=== PATIENT | male | born 1940 | race Caucasian/White ===

== ENCOUNTER 2018-07-19 14:12 | Observation (INO) | payer OTHER, SELFPAY ==
[2018-07-19] VITALS (11 sets, daily range): BP systolic 159–256; BP diastolic 74–186; PULSE 71–98; RESP 12–21; TEMP 36.4–36.6; O2SAT 92–100; BMI 18.6
--- NOTE | 2018-07-19 14:28 | DI.RAD.S_ITS ---
PROCEDURE: XR CHEST 1V INDICATIONS: chest pain TECHNIQUE: One view of the chest was acquired. COMPARISON: [facility], CT, ABDOMEN/PELVIS WITH CONTRAST, 12/29/2012, 9:51. [facility], CT, CT HEAD/BRAIN WO CON, 07/19/2018, 14:40. FINDINGS: Surgical changes and devices: None. Lungs and pleura: No pleural effusions or pneumothorax. Mild, streaky opacities are seen at the lung bases. Mediastinum: The cardiac contours are within normal limits. The aorta demonstrates calcification and tortuosity. Bones and chest wall: No suspicious bony lesions. Age-appropriate bony degenerative changes are seen. Overlying soft tissues appear unremarkable. IMPRESSION: Likely atelectasis is seen at the lung bases. Differential diagnosis includes mild/early infiltrate, however. Dictated by: Yong Stone M.D. on 07/19/2018 at 14:06 Approved by: Yong Stone M.D. on 07/19/2018 at 14:08
--- NOTE | 2018-07-19 14:42 | DI.CT.S_ITS ---
PROCEDURE: CT HEAD/BRAIN WO CON INDICATIONS: syncope and confusion TECHNIQUE: Noncontrast 4.5 mm thick angled axial sections acquired from the foramen magnum to the vertex, with coronal and sagittal reformats. For radiation dose reduction, the following was used: automated exposure control, adjustment of mA and/or kV according to patient size. COMPARISON: None. FINDINGS: Image quality: This examination is limited by involuntary motion artifact. CSF spaces: Basal cisterns are patent. No extra-axial fluid collections. The ventricles are symmetric in size and shape. Brain: No intracranial bleeds or masses. There is cerebral volume loss for age, with resultant ventricular and sulcal prominence. There are periventricular and deep white matter chronic small vessel ischemic changes. There is intracranial internal carotid artery atherosclerosis. Skull and face: Calvarium and visualized facial bones appear intact, without suspicious lesions. Sinuses: There is moderate mucosal thickening seen involving the right maxillary sinus. Visualized sinuses and mastoids otherwise appear clear. IMPRESSION: Limited study demonstrating no acute intracranial process. Focal right maxillary paranasal sinus disease noted. Dictated by: Yong Stone M.D. on 07/19/2018 at 14:03 Approved by: Yong Stone M.D. on 07/19/2018 at 14:06
[2018-07-19 14:54] LABS: Add Manual Diff / Slide Review NO; Basophils Percent Auto 0.8 % (0-2); Eosinophils Percent Auto 0.4 % (2-4); Hematocrit 43.5 % (41-53); Hemoglobin 14.4 g/dL (13.5-17.5); Lymphocytes Percent Auto 15.4 % (25-40); Mean Corpuscular Hemoglobin 30.8 PG (26-34); Mean Corpuscular Volume 93.3 fL (80-100); Monocytes Percent Auto 7.5 % (3-14); Neutrophils Absolute Auto 6300 /uL (3000-5900); Neutrophils Percent Auto 75.9 % (50-75); Platelet Count 233 X10^3/uL (150-400); Red Blood Cell Count 4.66 X10^6/uL (4.5-5.9); Red Cell Distribution Width 16.4 % (11.6-14.8); White Blood Cell Count 8.3 X10^3/uL (4.5-11.0)
[2018-07-19 15:01] LABS: INR 1.1 (0.9-1.3); Prothrombin Time 12.1 SECONDS (10.1-12.7)
[2018-07-19 15:03] LABS: PTT Partial Thromboplastin Tim 27 SECONDS (26.4-36.2)
[2018-07-19 15:07] LABS: Alanine Aminotransferase 14 IU/L (21-72); Albumin 4.3 g/dL (3.5-5.0); Albumin Globulin Ratio 0.9 (1.0-2.8); Alkaline Phosphatase 64 U/L (38-126); Aspartate Aminotransferase 20 IU/L (17-59); BUN Creatinine Ratio 17.5 (6-22); Bilirubin Total 0.5 mg/dL (0.2-1.3); Blood Urea Nitrogen 21 mg/dL (9-20); Calcium 9.4 mg/dL (8.4-10.2); Carbon Dioxide 31 mmol/L (22-32); Chloride 102 mmol/L (98-107); Creatine Kinase 45 U/L (55-170); Estimated Glomerular Filt Rate 58.6 mL/min (>60); Globulin 4.6 g/dL (1.7-4.1); Glucose 136 mg/dL (80-110); HEMOLYSIS < 15 (0-50); Lipase 237 U/L (23-300); Potassium 4.4 mmol/L (3.4-5.1); Sodium 145 mmol/L (137-145); Total Protein 8.9 g/dL (6.3-8.2)
--- NOTE | 2018-07-19 15:07 | ED.SYNCOPE ---
HPI - Syncope General Chief Complaint: Syncope Stated Complaint: syncope Time Seen by Provider: 07/19/18 14:41 Source: EMS Mode of arrival: EMS Limitations: altered mental status History of Present Illness HPI narrative: 78-year-old male brought in by EMS after he was reported that he had a syncopal episode. Unsure as to the exact events leading up to this. EMS was unable to provide more information on this. Patient was unable to provide information regarding the episode. EMS does report that upon their arrival the patient had an oxygen saturation in the 80s. This did improve with oxygen. some reports that the right side of the patient's face was drooping during the event. Patient arrived hypertensive. Unsure what his baseline blood pressure is. At 1 point during his stay here they patient stated that he has not taken his blood pressure medication in several days. Nursing staff attempted to contact patient's family had upon the initial conversation over the phone, the individual who is on the phone was unable to provide any further information regarding the event. Related Data Home Medications Medication Instructions Recorded Confirmed albuterol sulfate 2 puff INHALATION Q4-6H PRN 07/19/18 07/19/18 budesonide-formoterol 2 puff INHALATION BID 07/19/18 07/19/18 cholecalciferol (vitamin D3) 2,000 unit PO DAILY 07/19/18 07/19/18 [Vitamin D3] hydrochlorothiazide 25 mg PO DAILY 07/19/18 07/19/18 lisinopril 20 mg PO DAILY 07/19/18 07/19/18 tiotropium bromide 1 cap INHALATION DAILY 07/19/18 07/19/18 Allergies Allergy/AdvReac Type Severity Reaction Status Date / Time No Known Drug Allergies Allergy Verified 07/19/18 15:39 Review of Systems Review of Systems Unable to obtain secondary to patient's altered mental status. Information that was available was presented in the [facility] Medical History COPD (chronic obstructive pulmonary disease) (Acute) Costal chondritis (Acute) Hydronephrosis (Acute) Hypertension (Acute) Lipoma (Acute) Osteoarthritis (Acute) Prostate cancer (Acute) Pulmonary asbestosis (Acute) Smoker in home (Acute) Surgical history unknown (Acute) Ureteropelvic junction obstruction (Acute) Viral hepatitis C (Acute) Prostate CA (Chronic) Family History Sister CAD (coronary artery disease) Social History household members: none Smoking Status: Current every day smoker alcohol intake: current Exam Initial Vital Signs Initial Vital Signs: Vital Signs Temperature 97.6 F 07/19/18 14:13 Pulse Rate 98 H 07/19/18 14:13 Respiratory Rate 14 07/19/18 14:13 Blood Pressure 256/96 H 07/19/18 14:13 Pulse Oximetry 95 07/19/18 14:13 Const General: comfortable, No acute distress, No combative, disheveled and well hydrated Orientation: alert, awake, oriented to person, not oriented to place, not oriented to time and confused Limitations: altered mental status HENMT Head: normal to inspection and normocephalic Eyes Pupils: PERRL Resp Effort & Inspection: normal respiratory effort Auscultation: clear to auscultation bilaterally Other: Patient had received a nebulizer treatment prior to my evaluation. It was reported by respiratory therapy and nursing staff that he had diffuse bilateral crackles upon arrival. He was clear at the time of my exam. Cardio Rate: regular rate Rhythm: regular rhythm GI Inspection: non-distended Palpation: soft Skin Lesions: no lesions Rashes: no rashes Neuro General: alert, awake, moves all extremities and no focal motor deficits Speech: speech normal Other: Patient does follow commands. He was alert to person however did not know where he was. Did not know the circumstances of why he was here. Did not have a recollection of the event that brought him to the emergency department. The patient would answer some questions but was also inappropriate answering other questions. Extrem General: normal to inspection and capillary refill normal Psych Appearance: grossly normal Scores GCS Tracie coma scale eye opening: Spontaneous Tracie coma scale verbal response: Confused Tracie coma scale motor response: Obey commands [place] coma scale total score: 14 Course Orders Ordered: ED Orders 07/19/18 14:28 XR chest 1V Stat EKG-12 Lead Stat 07/19/18 14:42 CT head/brain wo con Stat B Type Natriuretic Peptide Stat Complete Blood Count AUTO DIFF Stat Comprehensive Metabolic Panel Stat Hemoglobin A1C % Routine Lipase Stat Lipid Panel Routine Partial Thromboplastin Time Stat Prothrombin Time INR Stat Troponin & CK Cardiac Panel Stat 07/19/18 16:00 Urine Culture Stat Urine Microscopic Stat 07/19/18 17:10 CT angio head and neck Stat 07/19/18 18:13 Consult to Occupational Therapy Evaluate & Treat Consult to Physical Therapy Evaluate & Treat Consult to Respiratory Therapy Evaluate & Treat 07/20/18 05:00 Basic Metabolic Panel Routine Complete Blood Count AUTO DIFF Routine Thyroid Stimulating Hormone Routine Albuterol/Ipratropium (Duoneb) 3 ml INH RTQ6HR PRN PRN Reason: Shortness Of Breath Hydrochlorothiazide (Hydrochlorothiazide) 25 mg PO DAILY DANIELA Labetalol HCl (Trandate) 10 mg IV Q6H PRN PRN Reason: BP 180/100 Lisinopril (Zestril) 20 mg PO DAILY DANIELA Nicotine (Nicoderm) 14 mg TOP DAILY DANIELA Discontinued Medications Labetalol HCl (Trandate) 10 mg IV NOW ONE Stop: 07/19/18 15:18 Last Admin: 07/19/18 15:34 Dose: Not Given Vital Signs - 8 hr 07/19/18 14:13 07/19/18 14:33 07/19/18 14:48 Temperature 97.6 F Pulse Rate 98 H 90 91 H Respiratory Rate 14 18 21 Blood Pressure 256/96 H Blood Pressure [Left Arm] 225/85 H 248/186 H Pulse Oximetry 95 92 94 07/19/18 15:09 07/19/18 15:34 07/19/18 16:34 Temperature Pulse Rate 91 H 79 Respiratory Rate 18 Blood Pressure 185/75 H Blood Pressure [Left Arm] 220/77 H 190/74 H Pulse Oximetry 98 07/19/18 17:04 07/19/18 18:28 Temperature Pulse Rate 80 72 Respiratory Rate 20 12 Blood Pressure Blood Pressure [Left Arm] 176/125 H 168/80 H Pulse Oximetry 100 98 MDM - Syncope Medical Records Attestation: I reviewed the patient's medical records. Lab Data Attestation: I reviewed the patient's lab results. Result diagrams: 07/19/18 14:42 07/19/18 14:42 Lab Results 07/19/18 07/19/18 07/19/18 Range/Units 14:42 14:42 14:42 WBC 8.3 (4.5-11.0) X10^3/uL RBC 4.66 (4.5-5.9) X10^6/uL Hgb 14.4 (13.5-17.5) g/dL Hct 43.5 (41-53) % MCV 93.3 (80-100) fL MCH 30.8 (26-34) PG MCHC 33.0 (30-36) % RDW 16.4 H (11.6-14.8) % Plt Count 233 (150-400) X10^3/uL Neut % (Auto) 75.9 H (50-75) % Lymph % (Auto) 15.4 L (25-40) % [place] % (Auto) 7.5 (3-14) % Eos % (Auto) 0.4 L (2-4) % Baso % (Auto) 0.8 (0-2) % Neut # (Auto) 6300 H (3500-7866) /uL PT 12.1 (10.1-12.7) SECONDS INR 1.1 (0.9-1.3) APTT 27 (26.4-36.2) SECONDS Sodium 145 (137-145) mmol/L Potassium 4.4 (3.4-5.1) mmol/L Chloride 102 (98-107) mmol/L Carbon Dioxide 31 (22-32) mmol/L BUN 21 H (9-20) mg/dL Creatinine 1.20 (0.66-1.25) mg/dL Estimated GFR 58.6 L (>60) mL/min BUN/Creatinine Ratio 17.5 (6-22) Glucose 136 H (80-110) mg/dL Calcium 9.4 (8.4-10.2) mg/dL Total Bilirubin 0.5 (0.2-1.3) mg/dL AST 20 (17-59) IU/L ALT 14 L (21-72) IU/L Alkaline Phosphatase 64 (38-126) U/L Total Creatine Kinase 45 L (55-170) U/L CK-MB (CK-2) TNP CK-MB (CK-2) Rel Index TNP Troponin I < 0.012 (0.01-0.034) ng/mL B-Natriuretic Peptide 307.0 H (<100) Total Protein 8.9 H (6.3-8.2) g/dL Albumin 4.3 (3.5-5.0) g/dL Globulin 4.6 H (1.7-4.1) g/dL Albumin/Globulin Ratio 0.9 L (1.0-2.8) Triglycerides (35-150) mg/dL Cholesterol (140-199) mg/dL LDL Cholesterol, Calc (<100) mg/dL HDL Cholesterol (40-60) mg/dL Lipase 237 (23-300) U/L Urine RBC (0-5/HPF) Urine WBC (0-5/HPF) Urine Bacteria (None) Ur Culture Indicated? Micro UA Comment 07/19/18 07/19/18 Range/Units 14:42 16:00 WBC (4.5-11.0) X10^3/uL RBC (4.5-5.9) X10^6/uL Hgb (13.5-17.5) g/dL Hct (41-53) % MCV (80-100) fL MCH (26-34) PG MCHC (30-36) % RDW (11.6-14.8) % Plt Count (150-400) X10^3/uL Neut % (Auto) (50-75) % Lymph % (Auto) (25-40) % [place] % (Auto) (3-14) % Eos % (Auto) (2-4) % Baso % (Auto) (0-2) % Neut # (Auto) (8518-7308) /uL PT (10.1-12.7) SECONDS INR (0.9-1.3) APTT (26.4-36.2) SECONDS Sodium (137-145) mmol/L Potassium (3.4-5.1) mmol/L Chloride (98-107) mmol/L Carbon Dioxide (22-32) mmol/L BUN (9-20) mg/dL Creatinine (0.66-1.25) mg/dL Estimated GFR (>60) mL/min BUN/Creatinine Ratio (6-22) Glucose (80-110) mg/dL Calcium (8.4-10.2) mg/dL Total Bilirubin (0.2-1.3) mg/dL AST (17-59) IU/L ALT (21-72) IU/L Alkaline Phosphatase (38-126) U/L Total Creatine Kinase (55-170) U/L CK-MB (CK-2) CK-MB (CK-2) Rel Index Troponin I (0.01-0.034) ng/mL B-Natriuretic Peptide (<100) Total Protein (6.3-8.2) g/dL Albumin (3.5-5.0) g/dL Globulin (1.7-4.1) g/dL Albumin/Globulin Ratio (1.0-2.8) Triglycerides 76 (35-150) mg/dL Cholesterol 185 (140-199) mg/dL LDL Cholesterol, Calc 113 H (<100) mg/dL HDL Cholesterol 57 (40-60) mg/dL Lipase (23-300) U/L Urine RBC 5-10/hpf H (0-5/HPF) Urine WBC 5-10/hpf H (0-5/HPF) Urine Bacteria None seen (None) Ur Culture Indicated? Specimen cultured Micro UA Comment Not Reportable Urine Dip Bedside Urine Glucose Negative Bedside Urine Bilirubin - Negative Bedside Urine Ketone - Negative Urine Specific [place] 1.015 Bedside Urine Occult Blood +/- Bedside Urine pH 8.0 Bedside Urine Protein ++ 100 Bedside Urine Urobilinogen - Negative Bedside Urine Nitrite - Negative Bedside Urine Leukocytes - Negative Esterase Imaging Data Chest x-ray: Radiologist's impression: PROCEDURE: XR CHEST 1V INDICATIONS: chest pain TECHNIQUE: One view of the chest was acquired. COMPARISON: [facility], CT, ABDOMEN/PELVIS WITH CONTRAST, 12/29/2012, 9:51. [facility], CT, CT HEAD/BRAIN WO CON, 07/19/2018, 14:40. FINDINGS: Surgical changes and devices: None. Lungs and pleura: No pleural effusions or pneumothorax. Mild, streaky opacities are seen at the lung bases. Mediastinum: The cardiac contours are within normal limits. The aorta demonstrates calcification and tortuosity. Bones and chest wall: No suspicious bony lesions. Age-appropriate bony degenerative changes are seen. Overlying soft tissues appear unremarkable. IMPRESSION: Likely atelectasis is seen at the lung bases. Differential diagnosis includes mild/early infiltrate, however. Dictated by: Yong Stone M.D. on 07/19/2018 at 14:06 Approved by: Yong Stone M.D. on 07/19/2018 at 14:08 CT scan - head: Radiologist's impression: ROCEDURE: CT HEAD/BRAIN WO CON INDICATIONS: syncope and confusion TECHNIQUE: Noncontrast 4.5 mm thick angled axial sections acquired from the foramen magnum to the vertex, with coronal and sagittal reformats. For radiation dose reduction, the following was used: automated exposure control, adjustment of mA and/or kV according to patient size. COMPARISON: None. FINDINGS: Image quality: This examination is limited by involuntary motion artifact. CSF spaces: Basal cisterns are patent. No extra-axial fluid collections. The ventricles are symmetric in size and shape. Brain: No intracranial bleeds or masses. There is cerebral volume loss for age, with resultant ventricular and sulcal prominence. There are periventricular and deep white matter chronic small vessel ischemic changes. There is intracranial internal carotid artery atherosclerosis. Skull and face: Calvarium and visualized facial bones appear intact, without suspicious lesions. Sinuses: There is moderate mucosal thickening seen involving the right maxillary sinus. Visualized sinuses and mastoids otherwise appear clear. IMPRESSION: Limited study demonstrating no acute intracranial process. Focal right maxillary paranasal sinus disease noted. Dictated by: Yong Stone M.D. on 07/19/2018 at 14:03 Approved by: Yong Stone M.D. on 07/19/2018 at 14: CTA head and neck: Radiologist's impression: [place] [address] CT Scan Report Signed Patient: Carson SilvermanMR#: [id number] : 1940Acct:[id number] Age/Sex: 78 / MDate of Service: 07/19/18 Loc: ED Accession Number: [id number] Procedure: CT angio head and neck Ordering Provider: Silver James D.O. PROCEDURE: CT ANGIO HEAD AND NECK INDICATIONS: altered mental status with stroke-like symptoms. confusion TECHNIQUE: Pre-contrast 4.5 mm thick sections acquired from the foramen magnum to the vertex. After the administration of intravenous contrast, 1 mm thick sections acquired from the aortic arch through the [place] of [place]. Post-contrast 4.5 mm thick sections then re-acquired from the foramen magnum to the vertex. 3-dimensional dvjwxeh-xwbgnvdme-jjltqvkarm (MIP) and/or volume rendering reformats were acquired of the central intracranial vasculature and neck separately. COMPARISON: [facility], CT, CT HEAD/BRAIN WO CON, 07/19/2018, 14:40. FINDINGS: Image quality: Excellent. BRAIN: CSF spaces: Ventricles are normal in size and shape. Basal cisterns are patent. No extra-axial fluid collections. Brain: No midline shift. No intracranial bleeds or masses. Mina-white matter interface appears intact. Skull and face: Calvarium and facial bones appear intact, without suspicious lesions. Orbits appear normal. Sinuses: Sinuses and mastoids are clear. HEAD CT ANGIOGRAPHY: Anterior circulation: Intracranial internal carotid arteries demonstrate moderate diffuse calcification and mild diffuse stenosis. The flow within the paired anterior cerebral arteries is normal and symmetric. The flow within the middle cerebral arteries is normal and symmetric. The anterior communicating artery is seen. No aneurysms are seen. Posterior circulation: Visualized portions of the vertebral arteries demonstrate normal caliber, and join to form a normal appearing basilar artery. Flow within the posterior cerebral arteries is normal and symmetric. No aneurysms are seen. NECK CT ANGIOGRAPHY: Carotid system: The great vessels demonstrate a conventional anatomy as they arise from the aortic arch. The origins of the common carotid arteries appear patent. The common carotid arteries demonstrate normal caliber and courses. There is roughly 30% stenosis of the proximal right internal carotid artery, which is otherwise patent. Roughly 10% origin stenosis of the left internal carotid artery is present, which is otherwise patent. Posterior circulation: The origins of the vertebral arteries both appear widely patent. The more superior extracranial portions of both vertebral arteries also demonstrate normal courses and scattered multifocal stenoses. They join to form a normal appearing basilar artery. Soft tissues: Visualized neck soft tissues demonstrate no suspicious abnormalities. There is moderate biapical emphysema. Calcified left-sided pleural plaques are present. Bones: No suspicious bony lesions. Severe right maxillary sinus mucosal thickening with surrounding mucoperiosteal thickening. Visualized cervical spine appears normally aligned. IMPRESSION: 1. Mild bilateral internal carotid artery stenoses. 2. Mild bilateral vertebral artery stenoses. 3. No acute process. 4. Asbestos related pleural disease. 5. Right maxillary sinus disease. Any quantitative measurements of stenosis were performed using NASCET criteria. Dictated by: Vivienne Perez M.D. on 07/19/2018 at 17:53 Approved by: Vivienne Perez M.D. on 07/19/2018 at 17:58 ECG Data Attestation: I personally reviewed and interpreted this ECG as follows: Prior ECG tracings: not available for review Interpretation: Sinus rhythm Ventricular rate of 93 LVH Normal axis Normal QRS Nonspecific ST T wave changes MDM Narrative Medical decision making narrative: Patient arrived here in the emergency department with very poor information. He seemed confused about the events surrounding why he was here. He was significantly hypertensive. This did improve here in the emergency department without any intervention. We were able to get her records from the [facility] which appears that the patient has had hypertension in the past. He has had prior clinic visits with his systolic pressure in the 170s 180s. During his stay here he did seem to become less altered. Family member did arrive here to provide more information about the events that led to his arrival here in the emergency department. She stated that while they were sitting at the table the patient became ?unresponsive? she noted that he was drooling out of the right side of his mouth. He was maintaining his airway. There was no shaking like activity. They called 911. I repeated orientation questions while the family member were in the room. She stated that at baseline the patient is ?sharp? she states he normally knows where he is and the date and his age and the president. The patient does live alone. He drives. We also found out the patient has prostate cancer. Is currently undergoing hormonal therapy. It does appear that he is improving somewhat since his arrival however is not at baseline. His symptoms did not sound like a seizure. This could potentially be a TIA. I feel like his symptoms are not consistent with stroke. I feel that metabolic encephalopathy is unlikely intoxication is unlikely. I discussed the case with Dr. Stewart who requested the CTA which was completed. She will admit the patient for observation. I discussed observation with the patient and the family who expressed understanding and agreement. Discharge Plan Departure Patient Disposition: Admitted as Observation Clinical Impression: Acute confusion, Altered mental status, Hypertension Discharge Date/Time: 07/19/18 18:46 Interventions: ED Discharge Assessment Last Done: 07/19/18 18:32 Admit Date/Time: 07/19/18 18:11 Admit Provider: Anabelle Stewart
--- NOTE | 2018-07-19 15:16 | PC.NURSE ---
Patient reports Right upper chest pain with palpation. Patient had a witnessed syncope episode with one episode of vomiting. Patient reports feeling fuzzy Oriented to self and location. Poor historian for medical history.
[2018-07-19 15:18] LABS: Troponin I < 0.012 ng/mL (0.01-0.034)
[2018-07-19 16:11] LABS: Bacteria Urine None Seen
[2018-07-19 16:19] LABS: Culture Indicated Urine Specimen Cultured; RBC Urine 5-10/HPF (0-5/HPF); WBC Urine 5-10/HPF (0-5/HPF)
--- NOTE | 2018-07-19 17:10 | DI.CT.S_ITS ---
PROCEDURE: CT ANGIO HEAD AND NECK INDICATIONS: altered mental status with stroke-like symptoms. confusion TECHNIQUE: Pre-contrast 4.5 mm thick sections acquired from the foramen magnum to the vertex. After the administration of intravenous contrast, 1 mm thick sections acquired from the aortic arch through the [place] of [place]. Post-contrast 4.5 mm thick sections then re-acquired from the foramen magnum to the vertex. 3-dimensional swzvcfl-joolpvxth-sniowaamea (MIP) and/or volume rendering reformats were acquired of the central intracranial vasculature and neck separately. COMPARISON: [facility], CT, CT HEAD/BRAIN WO CON, 07/19/2018, 14:40. FINDINGS: Image quality: Excellent. BRAIN: CSF spaces: Ventricles are normal in size and shape. Basal cisterns are patent. No extra-axial fluid collections. Brain: No midline shift. No intracranial bleeds or masses. Mina-white matter interface appears intact. Skull and face: Calvarium and facial bones appear intact, without suspicious lesions. Orbits appear normal. Sinuses: Sinuses and mastoids are clear. HEAD CT ANGIOGRAPHY: Anterior circulation: Intracranial internal carotid arteries demonstrate moderate diffuse calcification and mild diffuse stenosis. The flow within the paired anterior cerebral arteries is normal and symmetric. The flow within the middle cerebral arteries is normal and symmetric. The anterior communicating artery is seen. No aneurysms are seen. Posterior circulation: Visualized portions of the vertebral arteries demonstrate normal caliber, and join to form a normal appearing basilar artery. Flow within the posterior cerebral arteries is normal and symmetric. No aneurysms are seen. NECK CT ANGIOGRAPHY: Carotid system: The great vessels demonstrate a conventional anatomy as they arise from the aortic arch. The origins of the common carotid arteries appear patent. The common carotid arteries demonstrate normal caliber and courses. There is roughly 30% stenosis of the proximal right internal carotid artery, which is otherwise patent. Roughly 10% origin stenosis of the left internal carotid artery is present, which is otherwise patent. Posterior circulation: The origins of the vertebral arteries both appear widely patent. The more superior extracranial portions of both vertebral arteries also demonstrate normal courses and scattered multifocal stenoses. They join to form a normal appearing basilar artery. Soft tissues: Visualized neck soft tissues demonstrate no suspicious abnormalities. There is moderate biapical emphysema. Calcified left-sided pleural plaques are present. Bones: No suspicious bony lesions. Severe right maxillary sinus mucosal thickening with surrounding mucoperiosteal thickening. Visualized cervical spine appears normally aligned. IMPRESSION: 1. Mild bilateral internal carotid artery stenoses. 2. Mild bilateral vertebral artery stenoses. 3. No acute process. 4. Asbestos related pleural disease. 5. Right maxillary sinus disease. Any quantitative measurements of stenosis were performed using NASCET criteria. Dictated by: Vivienne Perez M.D. on 07/19/2018 at 17:53 Approved by: Vivienne Perez M.D. on 07/19/2018 at 17:58
--- NOTE | 2018-07-19 18:19 | P.HP_ITS ---
History of Present Illness Date Patient Seen: 07/19/18 Time Patient Seen: 18:16 Chief complaint: syncope Narrative: 78-year-old male with past medical history of COPD not on home oxygen , hypertension, prostate cancer on hormonal therapy, and chronic smoker who presented to emergency department after family called for altered mental status. As per stepdaughter, who is at bedside, patient was sitting at the dining table having conversation with them earlier this evening. All of the sudden, patient is slouched over and had an episode of NBNB vomitus. Right after, patient became unresponsive and continued to sit slouched over. No seizure like activity reported. No tongue biting or bowel/bladder function loss. When ambulance arrived, patient was saturating 80% on room air. He was placed on nasal cannula 2 L which improved his saturation. Patient was taken to emergency department to [facility]. On arrival to ED, patient was initially AAO x1, but gradually improved to AAO x2 -3. He does not recall much of what has happened to him. He currently denies any recent fevers or chills, blurry vision, dizziness. He denies recent cough, sore throat, chest pain. He currently denies any shortness of breath, nausea, vomiting. He denies any diarrhea or constipation. Denies any abdominal pain. Denies any genitourinary symptoms. In ED, patient's vitals showed O2 saturation 100% on room air, pulse 80, respirations 20, and blood pressure of 240/120 that subsequently came down to 176/125. He is afebrile. Patient's lungs revealed mild wheezing, and patient was given DuoNeb treatment with resolution of wheezes. His lab work revealed WBCs of 8.3, hemoglobin 14.4, hematocrit 43.5, platelets 233. Sodium was 145, potassium 4.4, chloride 102, bicarb 31, BUN 21, creatinine 1.2. Blood glucose was 136. BNP was 307, troponin x1 was negative. LFTs were normal. Lipase 237. Urinalysis is negative for infection. Chest x-ray showed atelectasis at the lung bases which could possibly mean early infiltrate. CT head demonstrated no acute intracranial processes, however there are periventricular and deep white matter chronic small-vessel ischemic changes. CT a head and neck revealed no acute occlusions or stenosis. Patient was given labetalol 10 mg IV x1 with improvement of blood pressure and was admitted [facility] for further workup possible TIA. Patient History Medical History COPD (chronic obstructive pulmonary disease) (Acute) Costal chondritis (Acute) Hydronephrosis (Acute) Hypertension (Acute) Lipoma (Acute) Osteoarthritis (Acute) Prostate cancer (Acute) Pulmonary asbestosis (Acute) Smoker in home (Acute) Surgical history unknown (Acute) Ureteropelvic junction obstruction (Acute) Viral hepatitis C (Acute) Prostate CA (Chronic) Family & Social History Safety & Behavioral: Feels Safe in Current Yes Environment Tobacco & Substance use: Smoking Status Current every day smoker Substance Use Type Cannabinoid oil Occasional ETOH user ETOH Meds Home Medications Medication Instructions Recorded Confirmed Type albuterol sulfate 2 puff INHALATION Q4-6H PRN 07/19/18 07/19/18 History budesonide-formoterol 2 puff INHALATION BID 07/19/18 07/19/18 History cholecalciferol (vitamin D3) 2,000 unit PO DAILY 07/19/18 07/19/18 History [Vitamin D3] hydrochlorothiazide 25 mg PO DAILY 07/19/18 07/19/18 History lisinopril 20 mg PO DAILY 07/19/18 07/19/18 History tiotropium bromide 1 cap INHALATION DAILY 07/19/18 07/19/18 History Allergies Allergy/AdvReac Type Severity Reaction Status Date / Time No Known Drug Allergies Allergy Verified 07/19/18 15:39 Review of Systems Review of Systems All systems reviewed & are unremarkable except as noted in HPI and below Exam Vital Signs (past 8 hours): - 07/19/18 14:13 07/19/18 14:33 07/19/18 14:48 Temperature 97.6 F Pulse Rate 98 H 90 91 H Respiratory Rate 14 18 21 Blood Pressure 256/96 H Blood Pressure [Left Arm] 225/85 H 248/186 H Pulse Oximetry 95 92 94 07/19/18 15:09 07/19/18 15:34 07/19/18 16:34 Temperature Pulse Rate 91 H 79 Respiratory Rate 18 Blood Pressure 185/75 H Blood Pressure [Left Arm] 220/77 H 190/74 H Pulse Oximetry 98 07/19/18 17:04 Temperature Pulse Rate 80 Respiratory Rate 20 Blood Pressure Blood Pressure [Left Arm] 176/125 H Pulse Oximetry 100 Oxygen Delivery Method Room Air Narrative Exam Narrative: General: No acute distress, currently AAO x3 HEENT: PERRLA bilaterally, EOMI bilaterally Neck: Supple, no LAD or JVD CV: Regular rate rhythm, no murmurs or gallops Respiratory: Clear to auscultation bilaterally, no wheezes or crackles heard at this time GI: Positive bowel sounds in all 4 quadrants, no organomegaly, nontender to palpation Musculoskeletal: Patient moves all extremities Extremities: No edema noted Skin: No lesions or bruising Neuro: No focal deficit, cranial nerves 2-12 are intact. Sensation is intact to both pain and soft touch Psych: Patient does not recall the earlier event, however is now mentating well Objective Labs Result Diagrams: 07/19/18 14:42 07/19/18 14:42 Labs: Laboratory Results - last 24 hr 07/19/18 07/19/18 07/19/18 14:42 14:42 14:42 WBC 8.3 RBC 4.66 Hgb 14.4 Hct 43.5 MCV 93.3 MCH 30.8 MCHC 33.0 RDW 16.4 H Plt Count 233 Neut % (Auto) 75.9 H Lymph % (Auto) 15.4 L Carlton % (Auto) 7.5 Eos % (Auto) 0.4 L Baso % (Auto) 0.8 Neut # (Auto) 6300 H PT 12.1 INR 1.1 APTT 27 Sodium 145 Potassium 4.4 Chloride 102 Carbon Dioxide 31 BUN 21 H Creatinine 1.20 Estimated GFR 58.6 L BUN/Creatinine Ratio 17.5 Glucose 136 H Calcium 9.4 Total Bilirubin 0.5 AST 20 ALT 14 L Alkaline Phosphatase 64 Total Creatine Kinase 45 L CK-MB (CK-2) TNP CK-MB (CK-2) Rel Index TNP Troponin I < 0.012 B-Natriuretic Peptide 307.0 H Total Protein 8.9 H Albumin 4.3 Globulin 4.6 H Albumin/Globulin Ratio 0.9 L Lipase 237 Urine RBC Urine WBC Urine Bacteria Ur Culture Indicated? Micro UA Comment 07/19/18 16:00 WBC RBC Hgb Hct MCV MCH MCHC RDW Plt Count Neut % (Auto) Lymph % (Auto) Carlton % (Auto) Eos % (Auto) Baso % (Auto) Neut # (Auto) PT INR APTT Sodium Potassium Chloride Carbon Dioxide BUN Creatinine Estimated GFR BUN/Creatinine Ratio Glucose Calcium Total Bilirubin AST ALT Alkaline Phosphatase Total Creatine Kinase CK-MB (CK-2) CK-MB (CK-2) Rel Index Troponin I B-Natriuretic Peptide Total Protein Albumin Globulin Albumin/Globulin Ratio Lipase Urine RBC 5-10/hpf H Urine WBC 5-10/hpf H Urine Bacteria None seen Ur Culture Indicated? Specimen cultured Micro UA Comment Not Reportable Assessment & Plan Plan: Assessment/Plan Narrative: 1. Acute encephalopathy/unresponsiveness -likely due to TIA versus malignant hypertension versus Seizures? -patient is approaching baseline mentation -CT head negative for acute findings, CTA head and neck showed mild BL internal carotid artery stenosis and mild BL vertebral artery stenosis. -will admit patient on telemetry for observation -will order echocardiogram, lipid panel, TSH, hemoglobin A1c 2. Malignant hypertension -likely due to medication noncompliance, as patient states he has not been taking his medications for quite some time -on admission, patient's blood pressure was 240/120, with subsequently going down to 176/125 -will resume patient's medication hydrochlorothiazide 25mg p.o. daily, and lisinopril 20 mg p.o. daily -labetalol 10 mg IV as needed q.6 hours for blood pressure 180/100 -monitor blood pressure 3. COPD -with a brief episode of hypoxia on presentation, however likely due to unresponsiveness -received DuoNeb treatment in the ED, will continue duo nebs q.6 hours PRN -will resume patient's budesonide-formoterol and tiotropium bromide 4. Prostate cancer -as per patient, he is currently on hormonal therapy, which he gets at the [facility] -continuation of therapy on the outpatient basis 5. Chronic tobacco dependence -will start patient on nicotine 14 mg daily -monitor for withdrawals Patient is DNR/DNI 45 min spent evaluating and managing this patient
--- NOTE | 2018-07-19 18:33 | PC.NURSE ---
[facility] [phone]
[2018-07-19 19:06] LABS: Cholesterol 185 mg/dL (140-199); HDL Cholesterol 57 mg/dL (40-60); LDL Cholesterol Calculated 113 mg/dL (<100); Triglycerides 76 mg/dL (35-150)
[2018-07-19 19:08] LABS: Hemoglobin A1C% w Est Avg Glu 5.9 % (4.0-6.0)
--- NOTE | 2018-07-19 19:42 | PC.NURSE ---
Pt to acute care from ER, transferred via stretcher. Alert, oriented, though forgetful at times. Unable to remember home meds, states, I take one for blood thinning and one for anxiety 5 and 15. Reports still feeling fuzzy, but its getting better. Reports history of falls. Bed alarm on. Also reports weak and unable to stand or walk. Wallet placed in safe. Oriented to room/call light.
[2018-07-19] MEDS: SODIUM CHLORIDE 0.9% FLUSH 10 ML IV (20:38)
[2018-07-19] MEDS: NICOTINE 14 PATCH 14 MG TOP (20:38)
--- NOTE | 2018-07-20 | DI.ECHO.S_ITS ---
[facility]---------+ [facility] +---------+ : : [address] : [place] : : : : [id number] : : : : Phone: [phone]+ Echocardiogram Report + + :Name: KIM MONIQUE Study Date: 07/20/2018 Height: 71 in : :[facility] Exam Location: [place] Weight: 133 lb : : Gender: Male BSA: 1.8 m2 : :: 1940 Age: 78 yrs BP: 163/81 mmHg: :Reason For Study: TIA : : Performed By: Keith Valencia : :Referring: SOLOMON CEDENO : + + Interpretation Summary Normal sinus rhythm. Normal LV size; mild concentric LVH; normal wall motion and LV systolic function. EF is 60-65%. Mild left atrial enlargerment; otherwise normal chamber sizes. No significant valvular abnormalities. No source of embolism identified. Procedure: A two-dimensional transthoracic echocardiogram with color flow and Doppler was performed. The study quality was technically adequate. There is no prior echocardiogram noted for this patient. The suprasternal notch views were difficult to obtain and are suboptimal in quality. The patient was in normal sinus rhythm during the exam. Left Ventricle: The left ventricle is normal in size. Left ventricular wall thickness is mildly increased. The ejection fraction is estimated to be 60- 65%. There are no focal wall motion abnormalities. Right Ventricle: The right ventricle is normal in size and function. Atria: The left atrium is mildly dilated. Right atrial size is normal. The interatrial septum is intact with no evidence for an atrial septal defect. Mitral Valve: The mitral valve is normal in structure and function. There is trace mitral regurgitation. Aortic Valve: The aortic valve is normal in structure and function. The aortic valve is trileaflet. The aortic valve opens well. No aortic regurgitation is present. Tricuspid Valve: The tricuspid valve is normal in structure and function. No tricuspid regurgitation. Pulmonary artery pressures cannot be estimated because of the lack of a measurable TR jet velocity. Pulmonic Valve: The pulmonic valve is normal in structure and function. There is no pulmonic valvular regurgitation. Great Vessels: The aortic root is normal size. The ascending aorta could not be visualized. The aortic arch could not be visualized. The pulmonary artery is normal size. The IVC is of normal diameter and collapses greater than 50% with a sniff. This suggests a low right atrial pressure of 3 mm Hg. Pericardium/ Pleura There is no pericardial effusion. There is no pleural effusion. MMode/2D Measurements & Calculations LVIDd: 4.8 cm Ao root diam: 3.2 cm LVIDs: 2.9 cm FS: 38.8 % EPSS: 0.82 cm IVSd: 1.1 cm LVPWd: 1.1 cm LV baca. diameter/BSA (cm/m^2): 2.7 LV sys. diameter/BSA (cm/m^2): 1.7 LA dimension: 3.4 cm RA long axis: 4.6 cm LA A2 area: 24.4 cm2 RA area: 14.7 cm2 LA A4 area: 15.8 cm2 RA vol: 39.8 ml LA length (vol): 4.7 cm RA : 22.4 ml/m2 LA vol: 70.0 ml IVC diam: 1.4 cm LA vol index: 39.5 ml/m2 Doppler Measurements & Calculations Ao V2 max: 95.3 cm/sec LVOT Max Charlie: 72.0 cm/sec Ao V2 mean: 72.1 cm/sec LV V1 max P.1 mmHg Ao max P.6 mmHg LV V1 VTI: 15.9 cm Ao mean P.2 mmHg sev ratio: 0.73 Ao V2 VTI: 21.6 cm MV E max charlie: 54.5 cm/sec PA V2 max: 71.3 cm/sec MV A max charlie: 70.5 cm/sec PA V2 mean: 56.8 cm/sec MV E/A: 0.77 PA mean P.4 mmHg Med Peak E' Charlie: 4.3 cm/sec PA pr(Accel): 21.6 mmHg E/E' med: 12.6 PA Accel Time: 0.12 sec Lat Peak E' Charlie: 5.5 cm/sec E/E' lat: 10.0 E/e' average: 11.3 MV dec time: 0.26 sec Pulm A Revs Charlie: 20.5 cm/sec Reading Physician:06:25 PM
[2018-07-20 00:07] VITALS: BP 149/95; PULSE 61; RESP 18; TEMP 36.7; O2SAT 96
[2018-07-20 04:48] VITALS: BP 143/73; PULSE 54; RESP 16; TEMP 36.7; O2SAT 95
[2018-07-20 05:59] LABS: Add Manual Diff / Slide Review NO; Basophils Percent Auto 1.1 % (0-2); Eosinophils Percent Auto 1.5 % (2-4); Hematocrit 35.7 % (41-53); Hemoglobin 11.8 g/dL (13.5-17.5); Lymphocytes Percent Auto 30.8 % (25-40); Mean Corpuscular HGB Conc 33.1 % (30-36); Mean Corpuscular Hemoglobin 30.6 PG (26-34); Mean Corpuscular Volume 92.4 fL (80-100); Neutrophils Absolute Auto 3800 /uL (3000-5900); Neutrophils Percent Auto 55.6 % (50-75); Platelet Count 189 X10^3/uL (150-400); Red Blood Cell Count 3.86 X10^6/uL (4.5-5.9); Red Cell Distribution Width 15.9 % (11.6-14.8); White Blood Cell Count 6.8 X10^3/uL (4.5-11.0)
[2018-07-20 06:10] LABS: BUN Creatinine Ratio 18.3 (6-22); Blood Urea Nitrogen 22 mg/dL (9-20); Calcium 8.8 mg/dL (8.4-10.2); Carbon Dioxide 26 mmol/L (22-32); Chloride 104 mmol/L (98-107); Estimated Glomerular Filt Rate 58.6 mL/min (>60); Glucose 83 mg/dL (80-110); HEMOLYSIS < 15 (0-50); Potassium 4.1 mmol/L (3.4-5.1); Sodium 137 mmol/L (137-145)
[2018-07-20 07:03] LABS: Thyroid Stimulating Hormone 1.82 uIU/mL (0.47-4.68)
[2018-07-20 08:00] VITALS: BP 156/84; PULSE 54; RESP 18; TEMP 36.4; O2SAT 95
--- NOTE | 2018-07-20 08:41 | CM.DANOTE ---
DCP: Case received, EMR reviewed and met with patient. Introduced self and role. DCP template completed with information currently available. Patient is a 78 year old male who admitted yesterday afternoon to the care of the hospitalist team. PCP: Dr. iTwari at [facility]. Payer: confirmed: Medicare. Patient came to hospital via ambulance due to syncope episode. Patient has history of COPD. Patient was diagnosed with early infiltrate to lungs, as well as acute encephalophy versus TIA. Patient is a smoker, and lives in his RV. Spoke to patient in his room, alert and oriented. Asked him about family, and he stated that his son lives next door, and his name is Syd. Stated that he would be able to pick him up when he is discharged. P: DCP to continue to follow closely, and offer any resources that patient may need. Mirian Dejesus RN/Retail Loss Prevention Investigator
[2018-07-20] MEDS: LISINOPRIL 20 MG TABLET PO (09:54)
[2018-07-20] MEDS: NICOTINE 14 PATCH 14 MG TOP (09:54)
[2018-07-20] MEDS: hydroCHLOROthiazide 25 MG TABLET PO (09:54)
[2018-07-20] MEDS: SODIUM CHLORIDE 0.9% FLUSH 10 ML IV (09:55)
--- NOTE | 2018-07-20 10:26 | PT.IIE ---
Surgical History (Last Updated 07/19/18 @ 19:18 by Rosalinda Pool, JAZZMINE) History of carpal tunnel repair (Acute) History of transurethral resection of prostate (Acute) Medical History (Last Updated 07/19/18 @ 19:34 by Gloria Angeles RN) A-fib (Acute) COPD (chronic obstructive pulmonary disease) (Acute) Centrilobular emphysema (Acute) Costal chondritis (Acute) Health maintenance alteration (Acute) Hydronephrosis (Acute) Hypertension (Acute) Lipoma (Acute) Osteoarthritis (Acute) Prostate cancer (Acute) Pulmonary asbestosis (Acute) Smoker in home (Acute) Surgical history unknown (Acute) Ureteropelvic junction obstruction (Acute) Viral hepatitis C (Acute) Prostate CA (Chronic) Physical Therapy Inpatient Evaluation/Re-Eval M1 PT/OT-IP Prior Functional Status Start: 07/20/18 10:41 Freq: NEEDED Status: Active Protocol: Document 07/20/18 10:42 [facility] (Rec: 07/20/18 10:53 [facility] [id number]) Medical Review Prior Functional Status Mobility and Gait indep. community ambulation without device Activities of Daily Living and IADL's indep. I/ADLs including driving. Social History Household Members none Living Arrangements RV Number of Floors (Floors) One Floor Number of Stairs To Enter/Railing? 2 SE L ascending rail Home Environment Standard Height Toilet Walk in Shower Built-In Shower Seat Home Equipment Straight Cane Additional Social History Comment pt lives [place] property with son in main house and pt in RV, they have walkie-talkies to communicate. Pt had an episode of unresponsiveness at home, AMS; found to have O2 saturation @ 80% by EMS, BP 240/120, then decreased to 176/125. Head CT negative, head/neck CTA showed mild B carotid and vertebral artery stenosis. Pt admitted, possible TIA. Echo to be performed today. M2 PT-IP Current Condition Start: 07/20/18 10:41 Freq: NEEDED Status: Active Protocol: Document 07/20/18 10:42 RCC (Rec: 07/20/18 10:53 [facility] [id number]) Physical Therapy Current Condition Current Condition Evaluation Date 07/20/18 Treatment Diagnosis possible TIA, AMS, syncope, impaired activity tolerance Precautions Other Precautions monitor BP M3 PT-IP Subjective Start: 07/20/18 10:41 Freq: NEEDED Status: Active Protocol: Document 07/20/18 10:42 [facility] (Rec: 07/20/18 10:53 [facility] [id number]) Subjective Physical Therapy Visit Type Type Initial Evaluation Visit Start Time 10:16 Visit Stop Time 10:42 Total Visit Minutes 26 Number of ECHOCARDIOGRAPH TECH Visits 0 Physical Therapy Visit Comments Patient Comments pt states he has no concerns about going back home. Therapy Pain Assessment Pain Present Pain Present Denied Pain M4 PT-IP Mobility and Gait Start: 07/20/18 10:41 Freq: NEEDED Status: Active Protocol: Document 07/20/18 10:42 RCC (Rec: 07/20/18 10:53 [facility] [id number]) PT-Bed Mobility Assessment Supine to Sit Supine to Sit Independent Sit to Supine Sit to Supine Independent Scooting Scooting to Edge of Bed Independent PT-Transfer Assessment Sit to and From Stand Sit to and from Stand Independent Equipment Transfer Assistive Device Gait Belt Straight Cane Transfers Transfer Destination Bed Transfer Technique Stand Step Pivot Transfer Ability Level of Assist Independent Gait Assessment Gait Gait Assistance Required: Standby Assistance Distance (Feet) 150 Able to Maintain Weight Bearing Status Yes During Gait Assistive Devices Assistive Device Gait Belt Straight Cane Gait Deviations General Gait Pattern Decreased Feet Clearance Flexed Trunk Factors Limiting Gait Function Factors Limiting Gait Function Decreased Activity Tolerance Decreased Strength Comments Gait Comments Pt ambulated 100 ft with SPC and SBA, then 50 ft without assistive device and SBA. O2 saturation 94% on RA after gait, HR 75 bpm. BP supine prior to mobility 184/83, after gait 194/76 Stair Climbing Assessment Evaluation Level of Assist On Stairs Standby Assistance Devices Stair Climbing Assistive Devices Straight Cane Left Railing Technique/Endurance Stair Climbing Direction Ascend and Descend Stair Climbing Technique Step Over Step Number of Steps Climbed 3 Query Text: PT-Balance Assessment Sitting Balance and Reactions Static Sitting Balance Ability Good Dynamic Sitting Balance Ability Good Standing Balance and Reactions Static Standing Balance Ability Good Dynamic Standing Balance Ability Fair Device Used SPC M5 PT-IP Objective Assessments Start: 07/20/18 10:41 Freq: NEEDED Status: Active Protocol: Document 07/20/18 10:42 RCC (Rec: 07/20/18 10:53 [facility] [id number]) Orientation Orientation/Cognition Level of Alertness Alert Orientation Name Age Birthday Month Date Year Day of Week Place Situation Gross Range of Motion Lower Extremity ROM Assessment Within Functional Limits Strength Lower Extremity Strength Hip flexion 4/5 B Knee extension 5/5 B, flexion 4/5 B Ankle DF 5/5 B Coordination Assessment Gross Coordination Gross Coordination WNL Assessment Heel on Garcia Test Normal Performance Sensation Assessment Sensation Gross Sensation WNL Muscle Tone Muscle Tone WNL Yes M6 PT-IP Treatment Start: 07/20/18 10:41 Freq: NEEDED Status: Active Protocol: Document 07/20/18 10:42 RCC (Rec: 07/20/18 10:53 [facility] [id number]) Physical Therapy Treatment Education Education Provided Safety M7 PT-IP Assessment and Plan Start: 07/20/18 10:41 Freq: NEEDED Status: Active Protocol: Document 07/20/18 10:42 RCC (Rec: 07/20/18 10:53 [facility] [id number]) PT Summary Assessment and Plan Potential Rehabilitation Potential Good Status of Condition at Evaluation Unstable Summary Impairments Strength Gait Activity Tolerance Progress Towards Goals Safe For Discharge Assessment Summary Pt indep. with bed mobility and sit<->stand, SBA for gait x100 ft using cane and then 50 ft without a device. No loss of balance noted. His BP was elevated, 184/83 prior to and 194/76 after gait. No c/o dizziness or lightheadedness. Pt appears to be safe from a mobility stand-point to return home when medically stable. Recommend he use his SPC for ambulation upon return home and monitor his BP (he has a home BP cuff). High complexity due to current prostate CA with treatment, impairments ( posture, gait, activity tolerance, strength), and co- morbidities (PMH). Goals Other Goals no goal set, pt is d/c from acute inpatient PT. Frequency of Treatment Frequency Of Treatment Discharge Recommendations To Nursing Amount of Assist Needed Standby Assistance Discharge Recommendations PT Discharge Recommendations Home Other Discharge Recommendations use SPC at home upon d/c.
--- NOTE | 2018-07-20 10:44 | P.DS_ITS ---
History of Present Illness Chief complaint: syncope Narrative: 78-year-old male with past medical history of COPD not on home oxygen , hypertension, prostate cancer on hormonal therapy, and chronic smoker who presented to emergency department after family called for altered mental status. As per stepdaughter, who is at bedside, patient was sitting at the dining table having conversation with them earlier this evening. All of the sudden, patient is slouched over and had an episode of NBNB vomitus. Right after, patient became unresponsive and continued to sit slouched over. No seizure like activity reported. No tongue biting or bowel/bladder function loss. When ambulance arrived, patient was saturating 80% on room air. He was placed on nasal cannula 2 L which improved his saturation. Patient was taken to emergency department to [facility]. On arrival to ED, patient was initially AAO x1, but gradually improved to AAO x2 -3. He does not recall much of what has happened to him. He currently denies any recent fevers or chills, blurry vision, dizziness. He denies recent cough, sore throat, chest pain. He currently denies any shortness of breath, nausea, vomiting. He denies any diarrhea or constipation. Denies any abdominal pain. Denies any genitourinary symptoms. Discharge Providers Date of admission: 07/19/18 18:11 Consults: 07/19/18 18:13 Consult to Occupational Therapy Evaluate & Treat Comment: Physician Instructions: Evaluate and treat Consult to Physical Therapy Evaluate & Treat Comment: Physician Instructions: Evaluate and Treat Consult to Respiratory Therapy Evaluate & Treat Comment: Physician Instructions: Evaluate and treat 07/19/18 19:11 Consult to Dietitian, Adult Routine Comment: Reason For Exam: reports significant weight loss in the past month Consult to Respiratory Therapy Evaluate & Treat Comment: Physician Instructions: Evaluate and treat Consult to Cement Or Concrete Finishing Supervisor Routine Comment: Discharge provider: Anabelle Stewart MD Discharge Date: 07/20/18 Summary Hospital Course: In ED, patient's vitals showed O2 saturation 100% on room air, pulse 80, respirations 20, and blood pressure of 240/120 that subsequently came down to 176/125. He is afebrile. Patient's lungs revealed mild wheezing, and patient was given DuoNeb treatment with resolution of wheezes. His lab work revealed WBCs of 8.3, hemoglobin 14.4, hematocrit 43.5, platelets 233. Sodium was 145, potassium 4.4, chloride 102, bicarb 31, BUN 21, creatinine 1.2. Blood glucose was 136. BNP was 307, troponin x1 was negative. LFTs were normal. Lipase 237. Urinalysis is negative for infection. Chest x-ray showed atelectasis at the lung bases which could possibly mean early infiltrate. CT head demonstrated no acute intracranial processes, however there are periventricular and deep white matter chronic small-vessel ischemic changes. CT a head and neck revealed no acute occlusions or stenosis. Patient was given labetalol 10 mg IV x1 with improvement of blood pressure and was admitted to general medical floor for further workup possible TIA. Once on the floors, patient went for CTA head and neck, which came back showing mild bilateral internal carotid artery stenosis, mild bilateral vertebral artery stenosis, no acute processes or occlusions, and right maxillary sinus disease. Lipid panel showed triglycerides 76, cholesterol 185, LDL 113, and HDL 57. TSH was 1.82, hemoglobin A1c was 5.9. Patient was started on atorvastatin 40 mg p.o. q.h.s., aspirin 81 mg p.o. daily, and resumed blood pressure medications hydrochlorothiazide 25 mg p.o. daily, and lisinopril 20 mg p.o. daily. Echocardiogram performed. Patient's mentation has returned to baseline the next morning. I had a discussion with patient regarding the importance of smoking cessation, and adherence to medications regimen to control his blood pressure. Patient stated he understood and was willing to improve his compliance. Patient will be discharged with a follow-up to primary care provider for echocardiography results. Status at Discharge Functional status at discharge: independent ambulation Overall status at discharge: patient is not back to baseline Time Spent with Patient Less than 30 minutes Exam Vital Signs (past 8 hours): - 07/20/18 04:48 07/20/18 08:00 Temperature 98.0 F 97.5 F L Pulse Rate 54 L 54 L Respiratory Rate 16 18 Blood Pressure 143/73 H 156/84 H Pulse Oximetry 95 95 Oxygen Delivery Method Room Air Narrative Exam Narrative: General: No acute distress, currently AAO x3 HEENT: PERRLA bilaterally, EOMI bilaterally Neck: Supple, no LAD or JVD CV: Regular rate rhythm, no murmurs or gallops Respiratory: Clear to auscultation bilaterally, no wheezes or crackles heard at this time GI: Positive bowel sounds in all 4 quadrants, no organomegaly, nontender to palpation Musculoskeletal: Patient moves all extremities Extremities: No edema noted Skin: No lesions or bruising Neuro: No focal deficit, cranial nerves 2-12 are intact. Sensation is intact to both pain and soft touch Psych: Patient does not recall the earlier event, however is now mentating well Objective Labs Result Diagrams: 07/20/18 05:32 07/20/18 05:32 Labs: Laboratory Results - last 24 hr 07/19/18 07/19/18 07/19/18 14:42 14:42 14:42 WBC 8.3 RBC 4.66 Hgb 14.4 Hct 43.5 MCV 93.3 MCH 30.8 MCHC 33.0 RDW 16.4 H Plt Count 233 Neut % (Auto) 75.9 H Lymph % (Auto) 15.4 L [place] % (Auto) 7.5 Eos % (Auto) 0.4 L Baso % (Auto) 0.8 Neut # (Auto) 6300 H PT 12.1 INR 1.1 APTT 27 Sodium 145 Potassium 4.4 Chloride 102 Carbon Dioxide 31 BUN 21 H Creatinine 1.20 Estimated GFR 58.6 L BUN/Creatinine Ratio 17.5 Glucose 136 H Hemoglobin A1c Calcium 9.4 Total Bilirubin 0.5 AST 20 ALT 14 L Alkaline Phosphatase 64 Total Creatine Kinase 45 L CK-MB (CK-2) TNP CK-MB (CK-2) Rel Index TNP Troponin I < 0.012 B-Natriuretic Peptide 307.0 H Total Protein 8.9 H Albumin 4.3 Globulin 4.6 H Albumin/Globulin Ratio 0.9 L Triglycerides Cholesterol LDL Cholesterol, Calc HDL Cholesterol Lipase 237 TSH Urine RBC Urine WBC Urine Bacteria Ur Culture Indicated? Micro UA Comment 07/19/18 07/19/18 07/19/18 14:42 14:42 16:00 WBC RBC Hgb Hct MCV MCH MCHC RDW Plt Count Neut % (Auto) Lymph % (Auto) [place] % (Auto) Eos % (Auto) Baso % (Auto) Neut # (Auto) PT INR APTT Sodium Potassium Chloride Carbon Dioxide BUN Creatinine Estimated GFR BUN/Creatinine Ratio Glucose Hemoglobin A1c 5.9 Calcium Total Bilirubin AST ALT Alkaline Phosphatase Total Creatine Kinase CK-MB (CK-2) CK-MB (CK-2) Rel Index Troponin I B-Natriuretic Peptide Total Protein Albumin Globulin Albumin/Globulin Ratio Triglycerides 76 Cholesterol 185 LDL Cholesterol, Calc 113 H HDL Cholesterol 57 Lipase TSH Urine RBC 5-10/hpf H Urine WBC 5-10/hpf H Urine Bacteria None seen Ur Culture Indicated? Specimen cultured Micro UA Comment Not Reportable 07/20/18 07/20/18 07/20/18 05:32 05:32 05:32 WBC 6.8 RBC 3.86 L Hgb 11.8 L Hct 35.7 L MCV 92.4 MCH 30.6 MCHC 33.1 RDW 15.9 H Plt Count 189 Neut % (Auto) 55.6 D Lymph % (Auto) 30.8 [place] % (Auto) 11.0 Eos % (Auto) 1.5 L Baso % (Auto) 1.1 Neut # (Auto) 3800 PT INR APTT Sodium 137 Potassium 4.1 Chloride 104 Carbon Dioxide 26 BUN 22 H Creatinine 1.20 Estimated GFR 58.6 L BUN/Creatinine Ratio 18.3 Glucose 83 Hemoglobin A1c Calcium 8.8 Total Bilirubin AST ALT Alkaline Phosphatase Total Creatine Kinase CK-MB (CK-2) CK-MB (CK-2) Rel Index Troponin I B-Natriuretic Peptide Total Protein Albumin Globulin Albumin/Globulin Ratio Triglycerides Cholesterol LDL Cholesterol, Calc HDL Cholesterol Lipase TSH 1.82 Urine RBC Urine WBC Urine Bacteria Ur Culture Indicated? Micro UA Comment Discharge Plan Discharge Plan Patient Disposition: Home Discharge comment: PATIENT NEEDS FOLLOW UP WITH PCP WITHIN ONE WEEK FOR ECHO RESULTS AND BP MONITORING Discharge Med Rec/Prescriptions Prescriptions: New atorvastatin [Lipitor] 20 mg Tablet 40 mg PO BEDTIME Qty: 30 RF: 0 nicotine 14 mg/24 hr Patch 24 Hour 14 mg Topical DAILY Qty: 14 RF: 0 aspirin 81 mg Tablet,Delayed Release (Dr/Ec) 81 mg PO DAILY Qty: 30 RF: 0 Continue albuterol sulfate 90 mcg/actuation Hfa Aerosol Inhaler 2 puff INHALATION Q4-6H PRN (Reason: Wheezing) RF: 0 cholecalciferol (vitamin D3) [Vitamin D3] 1,000 unit Capsule 2,000 unit PO DAILY RF: 0 tiotropium bromide 18 mcg Capsule, W/Inhalation Device 1 cap INHALATION DAILY RF: 0 budesonide-formoterol 160-4.5 mcg/actuation Hfa Aerosol Inhaler 2 puff INHALATION BID RF: 0 Anxiety RF: 0 Blood Thinner RF: 0 albuterol sulfate 2.5 mg /3 mL (0.083 %) Solution For Nebulization 2.5 mg INHALATION BID PRN (Reason: Shortness Of Breath) RF: 0 lisinopril 20 mg Tablet 20 mg PO DAILY Qty: 30 RF: 0 hydrochlorothiazide 25 mg Tablet 25 mg PO DAILY Qty: 30 RF: 0 Provider Discharge Instructions Diet: Low-sodium Discharge Data Attending Provider: Anabelle Stewart Admit Date/Time: 07/19/18 18:11 Quality VTE Deep Vein Thrombosis/Pulmonary Embolism Present on Admission: No
--- NOTE | 2018-07-20 12:02 | OT.IP.TRT ---
Occupational Therapy Treatment Note M3 OT- IP Subjective and Pain Start: 07/20/18 12:17 Freq: Status: Active Protocol: Document 07/20/18 12:02 EWELINA (Rec: 07/20/18 12:19 [email or web address] [id number]) OT- Subjective Occupational Therapy Visit Type Type Administrative Note Visit Start Time 11:55 Visit Stop Time 12:02 Notes OT referral received on this pt admitted with malignant hypertension, now with BP decreased to his normal range per RN. Per P.T. pt is at baseline level of mobility with no P.T. needs. Brief ADL interview/ assessment completed with pt. Pt independent with self care in room with no functional defiits noted. No OT needs identified for this admission. No charge.
[2018-07-20 12:55] VITALS: BP 163/81; PULSE 61; RESP 16; TEMP 36.8; O2SAT 94
--- NOTE | 2018-07-20 15:25 | CM.DPC ---
DCP Cont: Checked in with patient, was sleeping, but rousable. Patient is to be discharged home today. Asked patient if his son, Syd, could pick him up. Stated that his son was in [place]. Stated that he could take a taxi. Asked him if he had the funds, credit card, etc, and stated that he did. Called [facility] to see if they could transport him to [place], and stated that they could. Let them know that hospital would call them back with a time. Stated that it would be better to get back to them before 5:00, for it is their shift change. Gave phone number to nurse, Jones, who will pass it on to next shift nurse. P: Patient is to be discharged today, and they will call [facility] when patient is ready. Mirian Dejesus RN/Customer Service Cashier
== END 2018-07-20 16:10 | disposition home or self-care (01) ==
LOC: ED 18:06 → AC 18:12
PROVIDERS: Admitting Provider Internal Medicine; Emergency Provider Emergency Medicine; Visit Provider Internal Medicine
DX: G93.40 Encephalopathy, unspecified (principal); R55 Syncope and collapse; R41.82 Altered mental status, unspecified; J44.9 Chronic obstructive pulmonary disease, unspecified; I10 Essential (primary) hypertension; F17.210 Nicotine dependence, cigarettes, uncomplicated; C61 Malignant neoplasm of prostate; I65.03 Occlusion and stenosis of bilateral vertebral arteries; I65.23 Occlusion and stenosis of bilateral carotid arteries
CPT/HCPCS: 36415; 70450; 70496; 70498; 71045; 80048; 80053; 80061; 81003; 81015; 82550; 83036; 83690; 83880; 84443; 84484; 85025; 85610; 85730; 87086; 93005; 93041; 93306; 97163; 99284; 99285; 99406; G0378; Q9967

== ENCOUNTER 2019-05-03 15:35 | Emergency (ER) | payer OTHER, SELFPAY ==
[2018-07-19 18:58] VITALS: BMI 18.6
[2019-05-03] VITALS (7 sets, daily range): BP systolic 199–228; BP diastolic 71–109; PULSE 52–70; RESP 14–25; TEMP 36.6; O2SAT 96–100; BMI 17.5
--- NOTE | 2019-05-03 16:16 | ED_ITS ---
HPI - Nausea/Vomiting/Diarrhea <STEVEN Granado - Last Filed: 05/03/19 21:40> General Chief complaint: Nausea/Vomiting/Diarrhea Stated complaint: BAD BAD CASE OF DIARRHEA Time Seen by Provider: 05/03/19 15:41 Source: patient Mode of arrival: ambulatory Limitations: no limitations History of Present Illness HPI Narrative: 70-year-old male with a history of smoking and COPD, presents em ergency department today complaining of alternating diarrhea and constipation for the past month. He states that his diarrhea was slightly worse the past few days. He complains of increased gas and right lower quadrant pain and right upper quadrant 8/10 cramping that occasionally radiates the left side for the past month. He denies any recent camping, recent exposure to contaminated water, history of abdominal issues such as Crohn's or IBS, he denies melena. Patient states he drinks about 1 beer a month and smokes cigars daily. Patient also reports history of prostate cancer. He also denies any recent antibiotic use. Related Data Home Medications Medication Instructions Recorded Confirmed Anxiety 07/19/18 Blood Thinner 07/19/18 albuterol sulfate 2 puff INHALATION Q4-6H PRN 07/19/18 07/31/18 albuterol sulfate 2.5 mg INHALATION BID PRN 07/19/18 07/31/18 budesonide-formoterol 2 puff INHALATION BID 07/19/18 07/31/18 cholecalciferol (vitamin D3) 2,000 unit PO DAILY 07/19/18 07/31/18 [Vitamin D3] tiotropium bromide 1 cap INHALATION DAILY 07/19/18 07/31/18 Previous Rx's Medication Instructions Recorded atorvastatin [Lipitor] 40 mg PO BEDTIME #30 tab 07/20/18 hydrochlorothiazide 25 mg PO DAILY #30 tab 07/20/18 lisinopril 20 mg PO DAILY #30 tab 07/20/18 nicotine 14 mg TOPICAL DAILY #14 ea 07/20/18 hydrochlorothiazide 12.5 mg PO DAILY #30 tab 05/03/19 Allergies Allergy/AdvReac Type Severity Reaction Status Date / Time No Known Drug Allergies Allergy Verified 05/03/19 15:47 Review of Systems <STEVEN Granado - Last Filed: 05/03/19 21:40> Review of Systems Narrative: REVIEW OF SYSTEMS: GENERAL: Denies fever or chills. HENT: No head trauma, hearing loss or sore throat. EYES: No loss of vision, double vision, eye pain, or irritation. CARDIOVASCULAR: No chest pain or syncope. RESPIRATORY: Complains of occasional wheezing, see HPI. GASTROINTESTINAL: Complains of diarrhea and abdominal cramping, see HPI. GENITOURINARY: No flank pain or dysuria. MUSCULOSKELETAL: No pain, weakness, or deformities. INTEGUMENTARY: No rash, lesions, or pruritus. NEURO: No numbness, tingling, memory loss, or confusion. PSYCH: No behavior or mood changes. PFSH <STEVEN Granado - Last Filed: 05/03/19 21:40> Medical History A-fib (Acute) Carpal tunnel syndrome (Chronic) Centrilobular emphysema (Acute) Chronic back pain (Chronic) Coagulation disorder (Chronic) COPD (chronic obstructive pulmonary disease) (Acute) Costal chondritis (Acute) Health maintenance alteration (Acute) Hearing disorder (Chronic) Hydronephrosis (Acute) Hypertension (Acute) Lipoma (Acute) Osteoarthritis (Acute) Prostate CA (Chronic) Prostate cancer (Acute) Pulmonary asbestosis (Acute) Shoulder pain (Chronic) Smoker in home (Acute) Spinal pain (Chronic) Ureteropelvic junction obstruction (Acute) Viral hepatitis C (Acute ~1961) Vision disorder (Chronic) Surgical History History of carpal tunnel repair (Acute) History of transurethral resection of prostate (Acute) Surgical history unknown (Acute) Family History (Updated 07/19/18 @ 18:17 by Anabelle Stewart MD) Sister CAD (coronary artery disease) Social History household members: none Smoking Status: Current every day smoker alcohol intake: current Family History Sister CAD (coronary artery disease) Social History household members: none Smoking Status: Current every day smoker alcohol intake: current Exam <STEVEN Granado - Last Filed: 05/03/19 21:40> Initial Vital Signs Initial Vital Signs: Vital Signs Temperature 97.8 F 05/03/19 15:47 Pulse Rate 62 05/03/19 15:47 Respiratory Rate 14 05/03/19 15:47 Blood Pressure 227/109 H 05/03/19 15:47 Pulse Oximetry 98 05/03/19 15:47 PHYSICAL EXAMINATION: GENERAL: Well groomed, alert, and cooperative. Patient of appears very skinny, slightly malnourished. Answers questions promptly and appropriately. Vital signs noted. HENT: Normocephalic, atraumatic. Hearing intact. Oral mucosa is pink and moist. EYES: Conjunctiva pink, sclera white, no periorbital swelling. CARDIOVASCULAR: S1 and S2 sounds normal. Regular rate and rhythm, no murmurs, clicks, or bruits. No pedal edema. RESPIRATORY: Normal respiratory rate, trachea midline, airway patent. No strido r, nasal flaring or accessory muscle use. Diffuse wheezes noted in bilateral lower lobes, this resolved significantly after administration of DuoNeb. GASTROINTESTINAL: Bowel sounds hyperactive. Tenderness to right lower and right upper quadrant on palpation. No rebound tenderness. No organomegaly, no palpable masses. GENITALURINARY: No flank tenderness. MUSCULOSKELETAL: Normal gait and coordination. Equal tone and mass bilaterally. EXTREMITIES: CMS intact, no pedal edema. 2+ pedal pulses noted to right and left leg. No temperature deviation between the 2 legs, full range of motion, patient denies any tenderness with palpation to lower extremities. SKIN: Warm, dry, soft, appropriate color for ethnicity. No lesions, rashes, or wounds. NEURO: Alert and Oriented X 3. Good coordination. No ataxia, or sensory deficits, or cognitive issues. PSYCH: Appropriate affect and mood. <Stacey Carlos DO - Last Filed: 05/04/19 07:13> Initial Vital Signs Initial Vital Signs: Vital Signs Temperature 97.8 F 05/03/19 15:47 Pulse Rate 62 05/03/19 15:47 Respiratory Rate 14 05/03/19 15:47 Blood Pressure 227/109 H 05/03/19 15:47 Pulse Oximetry 98 05/03/19 15:47 Course <STEVEN Granado - Last Filed: 05/03/19 21:40> Course Course Narrative: One DuoNeb significantly resolved bilateral wheezes. Both CT ultrasound ordered as patient had right upper quadrant and lower quadrant tenderness. He presented with high systolic blood pressure above 200, over the course of his ER stay his blood pressure has not decreased. Patient states that he stopped taking his blood pressure medication two months ago. After much conversation with the patient, he agreed to for initial treatment of his high blood pressure as it was now 225/80 at this point, patient remains completely asymptomatic without headaches, vision changes, chest pain, or other concerning symptoms. After 5 mg of labetalol IV was given, patient stated he s tarted to feel lightheaded, his blood pressure was 199/81, HR 54. Patient was able to walk around without dizziness or other symptoms. He was discharged hydrochlorothiazide as this was 1 of the medications he was prescribed before (I avoided prescribing him a daily beta-renata as he has COPD). Extensive education was given to the patient about the importance of following up with his primary care provider. Patient agreed to plan. Patient was given Mag citrate to take home help relieve constipation. Orders Ordered: Discontinued Medications Albuterol/Ipratropium (Duoneb) 3 ml INH NOW ONE Stop: 05/03/19 16:26 Last Admin: 05/03/19 16:34 Dose: 3 ml Documented by: GALE Sodium Chloride (Normal Saline 0.9%) 1,000 mls @ 1,000 mls/hr IV BOLUS ONE Stop: 05/03/19 17:12 Last Infusion: 05/03/19 19:45 Dose: 0 mls/hr Documented by: Admin: 05/03/19 16:33 Dose: 1,000 mls/hr Documented by: GALE Labetalol HCl (Trandate) 10 mg IV NOW ONE Stop: 05/03/19 18:59 Last Admin: 05/03/19 19:36 Dose: Not Given Documented by: FRED Labetalol HCl (Trandate) 5 mg IV NOW ONE Stop: 05/03/19 19:11 Last Admin: 05/03/19 19:18 Dose: 5 mg Documented by: FRED Magnesium Citrate (Magnesium Citrate) 150 ml PO NOW ONE Stop: 05/03/19 19:06 Last Admin: 05/03/19 19:42 Dose: 150 ml Documented by: FRED Consultations Consultation #1: Patient was staffed with Dr. Carlos. Vital Signs Vital signs: Vital Signs - 8 hr 05/03/19 15:47 05/03/19 16:47 05/03/19 18:20 Temperature 97.8 F Pulse Rate 62 52 L 57 L Respiratory Rate 14 21 14 Blood Pressure 227/109 H Blood Pressure [Right Arm] 208/71 H Pulse Oximetry 98 96 100 05/03/19 18:30 05/03/19 19:18 05/03/19 19:25 Temperature Pulse Rate 70 56 L 54 L Respiratory Rate 24 Blood Pressure 211/91 H Blood Pressure [Right Arm] 225/85 H 228/79 H Pulse Oximetry 98 99 05/03/19 19:30 Temperature Pulse Rate 54 L Respiratory Rate 25 H Blood Pressure Blood Pressure [Right Arm] 199/81 H Pulse Oximetry 98 <Stacey Carlos, - Last Filed: 05/04/19 07:13> Orders Ordered: Discontinued Medications Albuterol/Ipratropium (Duoneb) 3 ml INH NOW ONE Stop: 05/03/19 16:26 Last Admin: 05/03/19 16:34 Dose: 3 ml Documented by: GALE Sodium Chloride (Normal Saline 0.9%) 1,000 mls @ 1,000 mls/hr IV BOLUS ONE Stop: 05/03/19 17:12 Last Infusion: 05/03/19 19:45 Dose: 0 mls/hr Documented by: Admin: 05/03/19 16:33 Dose: 1,000 mls/hr Documented by: GALE Labetalol HCl (Trandate) 10 mg IV NOW ONE Stop: 05/03/19 18:59 Last Admin: 05/03/19 19:36 Dose: Not Given Documented by: FRED Labetalol HCl (Trandate) 5 mg IV NOW ONE Stop: 05/03/19 19:11 Last Admin: 05/03/19 19:18 Dose: 5 mg Documented by: FRED Magnesium Citrate (Magnesium Citrate) 150 ml PO NOW ONE Stop: 05/03/19 19:06 Last Admin: 05/03/19 19:42 Dose: 150 ml Documented by: FRED Vital Signs Vital signs: Vital Signs - 8 hr 05/03/19 15:47 05/03/19 16:47 05/03/19 18:20 Temperature 97.8 F Pulse Rate 62 52 L 57 L Respiratory Rate 14 21 14 Blood Pressure 227/109 H Blood Pressure [Right Arm] 208/71 H Pulse Oximetry 98 96 100 05/03/19 18:30 05/03/19 19:18 05/03/19 19:25 Temperature Pulse Rate 70 56 L 54 L Respiratory Rate 24 Blood Pressure 211/91 H Blood Pressure [Right Arm] 225/85 H 228/79 H Pulse Oximetry 98 99 05/03/19 19:30 Temperature Pulse Rate 54 L Respiratory Rate 25 H Blood Pressure Blood Pressure [Right Arm] 199/81 H Pulse Oximetry 98 MDM - Nausea/Vomiting/Diarrhea <STEVEN Granado - Last Filed: 05/03/19 21:40> Medical Records Attestation: I reviewed the patient's medical records. Lab Data Attestation: I reviewed the patient's lab results. Result diagrams: 05/03/19 16:23 05/03/19 16:23 Labs: Lab Results 05/03/19 05/03/19 05/03/19 Range/Units 16:23 16:23 16:23 WBC 7.3 (4.5-11.0) X10^3/uL RBC 4.52 (4.5-5.9) X10^6/uL Hgb 14.0 (13.5-17.5) g/dL Hct 41.9 (41-53) % MCV 92.7 (80-100) fL MCH 31.1 (26-34) PG MCHC 33.5 (30-36) % RDW 15.4 H (11.6-14.8) % Plt Count 229 (150-400) X10^3/uL Neut % (Auto) 66.8 (50-75) % Lymph % (Auto) 23.2 L (25-40) % Antelope % (Auto) 8.3 (3-14) % Eos % (Auto) 1.5 L (2-4) % Baso % (Auto) 0.2 (0-2) % Neut # (Auto) 4900 (8500-0835) /uL Lymph # (Auto) 1700 (6728-6094) /uL Antelope # (Auto) 600 (0-900) /uL Eos # (Auto) 100 (0-450) /uL Baso # (Auto) 0 (0-100) /uL PT 11.4 (10.1-12.7) SECONDS INR 1.0 (0.9-1.3) APTT 36 D (26.4-36.2) SECONDS Sodium 140 (137-145) mmol/L Potassium 4.5 (3.4-5.1) mmol/L Chloride 104 (98-107) mmol/L Carbon Dioxide 29 (22-32) mmol/L BUN 31 H (9-20) mg/dL Creatinine 1.10 (0.66-1.25) mg/dL Estimated GFR > 60.0 (>60) mL/min BUN/Creatinine Ratio 28.2 H (6-22) Glucose 88 (80-110) mg/dL Calcium 9.9 (8.4-10.2) mg/dL Total Bilirubin 0.7 (0.2-1.3) mg/dL AST 23 (17-59) IU/L ALT < 6 L (21-72) IU/L Alkaline Phosphatase 65 (38-126) U/L Total Creatine Kinase (55-170) U/L CK-MB (CK-2) CK-MB (CK-2) Rel Index Troponin I (0.01-0.034) ng/mL Total Protein 8.9 H (6.3-8.2) g/dL Albumin 4.2 (3.5-5.0) g/dL Globulin 4.7 H (1.7-4.1) g/dL Albumin/Globulin Ratio 0.9 L (1.0-2.8) Lipase (23-300) U/L 05/03/19 05/03/19 Range/Units 16:23 16:23 WBC (4.5-11.0) X10^3/uL RBC (4.5-5.9) X10^6/uL Hgb (13.5-17.5) g/dL Hct (41-53) % MCV (80-100) fL MCH (26-34) PG MCHC (30-36) % RDW (11.6-14.8) % Plt Count (150-400) X10^3/uL Neut % (Auto) (50-75) % Lymph % (Auto) (25-40) % Antelope % (Auto) (3-14) % Eos % (Auto) (2-4) % Baso % (Auto) (0-2) % Neut # (Auto) (6169-5175) /uL Lymph # (Auto) (4773-6567) /uL Antelope # (Auto) (0-900) /uL Eos # (Auto) (0-450) /uL Baso # (Auto) (0-100) /uL PT (10.1-12.7) SECONDS INR (0.9-1.3) APTT (26.4-36.2) SECONDS Sodium (137-145) mmol/L Potassium (3.4-5.1) mmol/L Chloride (98-107) mmol/L Carbon Dioxide (22-32) mmol/L BUN (9-20) mg/dL Creatinine (0.66-1.25) mg/dL Estimated GFR (>60) mL/min BUN/Creatinine Ratio (6-22) Glucose (80-110) mg/dL Calcium (8.4-10.2) mg/dL Total Bilirubin (0.2-1.3) mg/dL AST (17-59) IU/L ALT (21-72) IU/L Alkaline Phosphatase (38-126) U/L Total Creatine Kinase 37 L (55-170) U/L CK-MB (CK-2) TNP CK-MB (CK-2) Rel Index TNP Troponin I < 0.012 (0.01-0.034) ng/mL Total Protein (6.3-8.2) g/dL Albumin (3.5-5.0) g/dL Globulin (1.7-4.1) g/dL Albumin/Globulin Ratio (1.0-2.8) Lipase 253 (23-300) U/L Imaging Data Chest x-ray: Radiologist's impression: [address] [address] XRay Report Signed Patient: Carson SilvermanMR#: [id number] : 1940Acct:[id number] Age/Sex: 78 / MDate of Service: 05/03/19 Loc: ED Accession Number: [id number] Procedure: XR chest 1V Ordering Provider: Frida Chand PROCEDURE: XR CHEST 1V INDICATIONS: SOB, wheezing TECHNIQUE: One view of the chest was acquired. COMPARISON: [facility], CR, XR CHEST 1V, 07/19/2018, 14:56. FINDINGS: Surgical changes and devices: None. Lungs and pleura: The aeration of the lungs is similar to the previous exam with patchy areas of increased density throughout the lungs bilaterally that is more prominent on the right lung compared to the left. Blunting of the right costophrenic angle is similar to the previous exam. No definite effusion or pneumothorax is appreciated. Mediastinum: Mediastinal contours appear normal. Heart size is normal. Bones and chest wall: No suspicious bony lesions. Overlying soft tissues appear unremarkable. IMPRESSION: Patchy airspace disease throughout the lungs (right more than left) have a similar appearance to the previous exam and probably represents chronic lung changes. Superimposed pneumonia is difficult to exclude. Dictated by: William Valiente M.D. on 05/03/2019 at 15:33 Approved by: William Valiente M.D. on 05/03/2019 at 15:34 US - abdomen: Radiologist's impression: [address] [place] [address] Ultrasound Report Signed Patient: Carson Silverman#: [id number] : 1940Acct:[id number] Age/Sex: 78 / MDate of Service: 05/03/19 Loc: ED Accession Number: [id number] Procedure: US abdomen limited Ordering Provider: Frida Chand PROCEDURE: US ABDOMEN LIMITED INDICATIONS: RIGHT UPPER QUADRANT PAIN TECHNIQUE: Real-time scanning was performed of the abdominal and retroperitoneal organs, with image documentation. COMPARISON: [facility], CT, CT ABDOMEN PELVIS W CON, 05/03/2019, 17:47. FINDINGS: Liver: The liver is normal in size and noted to be moderately heterogeneous without a definite liver lesion appreciated. Gallbladder: The gallbladder is normal in size. There borderline gallbladder wall thickening. Areas of ring down artifact may represent overlying bowel versus adenomyomatosis. A small amount of sludge is present within the gallbladder. There is no pericholecystic fluid or cholelithiasis. Biliary ducts: Intrahepatic bile ducts are non-dilated. Extrahepatic bile duct caliber measures 5 mm. Normal is 6-7 mm or less in diameter, or 10 mm or less post-cholecystectomy. Pancreas: Visualized portions of the pancreas are sonographically normal. Kidney: Right kidney is normal in size and demonstrates slight increased echogenicity of the renal cortex. There is no hydronephrosis. Cortical thinning is present. The right kidney measures 10.3 cm in length. No cystic or solid renal lesions are evident. No shadowing renal calculi. Miscellaneous: No free abdominal fluid. IMPRESSION: 1. Gallbladder sludge without cholelithiasis or convincing evidence of acute cholecystitis. 2. Questionable gallbladder adenomyomatosis. 3. Echogenic appearance of the right kidney with corresponding cortical thinning suggestive of chronic medical renal disease. There is no hydronephrosis. Dictated by: William Valiente M.D. on 05/03/2019 at 17:02 Approved by: William Valiente M.D. on 05/03/2019 at 17:05 [facility] Narrative Medical decision making narrative: Suspect that patient's diarrhea/constipation is cause mainly from narrowing of his sigmoid colon as seen on CT (differential for this includes damage from past prostate surgeries as noted by patient, malignancy), less likely gastroenteritis (due to findings on CT, continuation of symptoms for months), less likely C-diff (operations between constipation and diarrhea, no risk factors, no recent antibiotic use), IBS (possible due to altered eating constipation and diarrhea), IBD (possible but unable to rule this out, patient needs colonoscopy). Occluded right common femoral artery, patient is asymptomatic without temperature deviation, CMS intact and pulses are equal bilaterally. Patient also has significant hypertension this is most likely due to his other chronic condition, and appears that patient has had this level high blood pressure for quite some time as he was very symptomatic with a slight lowering his blood pressure, due to lack of symptoms (headache, vision changes, dizziness), patient was discharged with p.o. medications. I spent over 10-15 minutes explaining to patient in detail his CT scan and the extreme importance f or follow-up. Very strict return precautions were given and follow-up instructions discussed. <Stacey Carlos, DO - Last Filed: 05/04/19 07:13> Lab Data Labs: Lab Results 05/03/19 05/03/19 05/03/19 Range/Units 16:23 16:23 16:23 WBC 7.3 (4.5-11.0) X10^3/uL RBC 4.52 (4.5-5.9) X10^6/uL Hgb 14.0 (13.5-17.5) g/dL Hct 41.9 (41-53) % MCV 92.7 (80-100) fL MCH 31.1 (26-34) PG MCHC 33.5 (30-36) % RDW 15.4 H (11.6-14.8) % Plt Count 229 (150-400) X10^3/uL Neut % (Auto) 66.8 (50-75) % Lymph % (Auto) 23.2 L (25-40) % Antelope % (Auto) 8.3 (3-14) % Eos % (Auto) 1.5 L (2-4) % Baso % (Auto) 0.2 (0-2) % Neut # (Auto) 4900 (5518-5884) /uL Lymph # (Auto) 1700 (7655-7814) /uL Antelope # (Auto) 600 (0-900) /uL Eos # (Auto) 100 (0-450) /uL Baso # (Auto) 0 (0-100) /uL PT 11.4 (10.1-12.7) SECONDS INR 1.0 (0.9-1.3) APTT 36 D (26.4-36.2) SECONDS Sodium 140 (137-145) mmol/L Potassium 4.5 (3.4-5.1) mmol/L Chloride 104 (98-107) mmol/L Carbon Dioxide 29 (22-32) mmol/L BUN 31 H (9-20) mg/dL Creatinine 1.10 (0.66-1.25) mg/dL Estimated GFR > 60.0 (>60) mL/min BUN/Creatinine Ratio 28.2 H (6-22) Glucose 88 (80-110) mg/dL Calcium 9.9 (8.4-10.2) mg/dL Total Bilirubin 0.7 (0.2-1.3) mg/dL AST 23 (17-59) IU/L ALT < 6 L (21-72) IU/L Alkaline Phosphatase 65 (38-126) U/L Total Creatine Kinase (55-170) U/L CK-MB (CK-2) CK-MB (CK-2) Rel Index Troponin I (0.01-0.034) ng/mL Total Protein 8.9 H (6.3-8.2) g/dL Albumin 4.2 (3.5-5.0) g/dL Globulin 4.7 H (1.7-4.1) g/dL Albumin/Globulin Ratio 0.9 L (1.0-2.8) Lipase (23-300) U/L 05/03/19 05/03/19 Range/Units 16:23 16:23 WBC (4.5-11.0) X10^3/uL RBC (4.5-5.9) X10^6/uL Hgb (13.5-17.5) g/dL Hct (41-53) % MCV (80-100) fL MCH (26-34) PG MCHC (30-36) % RDW (11.6-14.8) % Plt Count (150-400) X10^3/uL Neut % (Auto) (50-75) % Lymph % (Auto) (25-40) % Antelope % (Auto) (3-14) % Eos % (Auto) (2-4) % Baso % (Auto) (0-2) % Neut # (Auto) (1966-6633) /uL Lymph # (Auto) (0915-7468) /uL Antelope # (Auto) (0-900) /uL Eos # (Auto) (0-450) /uL Baso # (Auto) (0-100) /uL PT (10.1-12.7) SECONDS INR (0.9-1.3) APTT (26.4-36.2) SECONDS Sodium (137-145) mmol/L Potassium (3.4-5.1) mmol/L Chloride (98-107) mmol/L Carbon Dioxide (22-32) mmol/L BUN (9-20) mg/dL Creatinine (0.66-1.25) mg/dL Estimated GFR (>60) mL/min BUN/Creatinine Ratio (6-22) Glucose (80-110) mg/dL Calcium (8.4-10.2) mg/dL Total Bilirubin (0.2-1.3) mg/dL AST (17-59) IU/L ALT (21-72) IU/L Alkaline Phosphatase (38-126) U/L Total Creatine Kinase 37 L (55-170) U/L CK-MB (CK-2) TNP CK-MB (CK-2) Rel Index TNP Troponin I < 0.012 (0.01-0.034) ng/mL Total Protein (6.3-8.2) g/dL Albumin (3.5-5.0) g/dL Globulin (1.7-4.1) g/dL Albumin/Globulin Ratio (1.0-2.8) Lipase 253 (23-300) U/L Discharge Plan Departure Patient Disposition: Home Clinical Impression: Abnormal CT scan, gastrointestinal tract, Sludge in gallbladder Hypertension Qualifiers: Hypertension type: unspecified Qualified Code(s): I10 - Essential (primary) hypertension Constipation Qualifiers: Constipation type: outlet dysfunction constipation Qualified Code(s): K59.02 - Outlet dysfunction constipation Discharge Date/Time: 05/03/19 19:54 Instructions: DI for Constipation Activity Restrictions/Additional Instructions: Thank you for entrusting me with your care today. As discussed, there is narrowing part of your bowel noted on her CT scan, I highly recommend that you follow up with her primary care provider in order to schedule a colonoscopy for further evaluation of this finding. Additionally I recommend taking ozaj-may-syqlniq Miralx (also known as polyethylene glycol) one capful a day as well as vhey-kyz-luxgjfm docusate 100mg 1-2 times a day for constipation. We sent him home with 1 dose of magnesium citrate, please take his medication once you arrive home as this will help you have a bowel movement. Your blood pressure was very high today, I prescribed a blood pressure medication that he must take every day help lower her blood pressure. Please follow up with her primary care provider about this as well. Additionally, here gallbladder appeared to have ?sludge ?, we were unable to determine if you have gallstones. Please discuss this with your primary care provider as well. Return to the emergency department if you develops chest pain, shortness of breath, dizziness, fevers, severe abdominal pain, syncope, severe headache, facial droop, vision changes, or any other concerning symptoms. Prescriptions: New hydrochlorothiazide 12.5 mg tablet 12.5 mg PO DAILY Qty: 30 RF: 0 No Action albuterol sulfate 90 mcg/actuation Hfa Aerosol Inhaler 2 puff INHALATION Q4-6H PRN (Reason: Wheezing) RF: 0 cholecalciferol (vitamin D3) [Vitamin D3] 1,000 unit Capsule 2,000 unit PO DAILY RF: 0 tiotropium bromide 18 mcg Capsule, W/Inhalation Device 1 cap INHALATION DAILY RF: 0 budesonide-formoterol 160-4.5 mcg/actuation Hfa Aerosol Inhaler 2 puff INHALATION BID RF: 0 Anxiety RF: 0 Blood Thinner RF: 0 albuterol sulfate 2.5 mg /3 mL (0.083 %) Solution For Nebulization 2.5 mg INHALATION BID PRN (Reason: Shortness Of Breath) RF: 0 atorvastatin [Lipitor] 20 mg Tablet 40 mg PO BEDTIME Qty: 30 RF: 0 nicotine 14 mg/24 hr Patch 24 Hour 14 mg Topical DAILY Qty: 14 RF: 0 lisinopril 20 mg Tablet 20 mg PO DAILY Qty: 30 RF: 0 hydrochlorothiazide 25 mg Tablet 25 mg PO DAILY Qty: 30 RF: 0 Referrals: Tyron Coronel MD [Primary Care Provider] -
--- NOTE | 2019-05-03 16:23 | DI.CT.S_ITS ---
PROCEDURE: CT ABDOMEN PELVIS W CON INDICATIONS: RLQ and RUQ pain X 1 month. TECHNIQUE: After the administration of oral and intravenous contrast, 5 mm thick sections acquired from the diaphragms to the symphysis. 5 mm thick coronal and sagittal reformats were performed. For radiation dose reduction, the following was used: automated exposure control, adjustment of mA and/or kV according to patient size. COMPARISON: [facility], CT, ABDOMEN/PELVIS WITH CONTRAST, 12/29/2012, 9:51. FINDINGS: Image quality: Diagnostic. ABDOMEN: Lung bases: Calcified pleural plaques are identified within the bilateral lung bases, which are grossly similar to the examination from 2013, suggesting a benign process and probably related to prior asbestosis exposure. Interstitial prominence within the bilateral lung bases is also present with associated mild atelectasis, also probably chronic related to chronic interstitial or fibrotic change. Heart size is normal. Solid organs: The liver is noted to be hypodense when compared to the spleen. However, no definite liver lesions are appreciated. The gallbladder is normal in size. The common bile duct is not significantly dilated. The adrenals are unremarkable. There is slight prominence of the left adrenal gland, which is unchanged since 2013. It the pancreas is within normal limits. However, there does appear to be a small cystic structure identified along the medial aspect of the body of the pancreas that measures up to approximately 8 mm in diameter, which probably was present on the previous examination that much more apparent on the current study related to differences in imaging technique. Few calcifications within the head of the pancreas suggest prior pancreatitis. No surrounding inflammation is evident. The spleen contains multiple calcifications, but is otherwise unremarkable. Numerous parapelvic cysts are evident the bulging the left kidney with associated prominent hydronephrosis and urothelial enhancement. No definite solid lesions are appreciated involving the left kidney. Areas of scarring appear to be present. The right kidney is normal in size without hydronephrosis. Parenchymal thinning is noted. Vascular calcifications overlying both kidneys are present. No definite nephrolithiasis is appreciated. Peritoneum and bowel: The stomach is unremarkable. The small bowel loops within the lower pelvis are slightly prominent in size but, measuring up to approximately 3 cm in diameter. However, the proximal and distal small bowel loops at this location are not significantly decompressed or distended. A large amount of stool is seen throughout the colon. A single area of luminal narrowing involving the sigmoid colon is identified (image 53, series 2 and image 23, series 4) without a definable mass appreciated. No free fluid or loculated fluid collection is evident. The appendix is normal in size and noted to contain air (image 16, series 4 and image 63, series 2). Nodes and vessels: No retroperitoneal or mesenteric adenopathy. Aorta and inferior vena cava are normal in caliber. Severe aortic atherosclerosis is identified with ectasia of the lower abdominal aorta measuring up to 2.9 cm. No hollie aneurysm is evident on based on size criteria. Atherosclerosis involving the branch vessels of the abdominal aorta are present. There is prominent atherosclerotic changes involving the bilateral iliac arteries and proximal femoral arteries. The proximal right superficial femoral artery appears to be occluded. Bones: No severe degenerative changes of the thoracolumbar spine are noted. No definite bony metastases are appreciated. There straightening of normal lumbar lordosis. Grade 1 anterolisthesis of L3 on L4 is present. There likely are areas of central canal and neural foraminal narrowing. PELVIS: Genitourinary: The urinary bladder is decompressed. The urinary bladder wall is slightly prominent. The prostate is probably surgically absent or markedly diminutive. Miscellaneous: No inguinal hernias or adenopathy. No free fluid or loculated fluid collection is evident. Bones: No suspicious bony lesions. No acute pelvic fracture is identified. There are mild to moderate degenerative changes of the pelvic joints. IMPRESSION: 1. No convincing evidence of metastatic disease within the abdomen or pelvis. 2. Nonspecific short segment area of marked narrowing involving the sigmoid colon may represent a focal area of scarring or decompressed bowel loop. However, the possibility of a focal mass cannot be excluded and colonoscopy is recommended. 3. Large amount of stool throughout the colon is suggestive of constipation. There may be rectal fecal impaction. 4. Small bowel ileus. 5. Multiple parapelvic cysts of the left kidney with associated probable hydronephrosis. Urothelial enhancement raises the suspicion for possible pyelonephritis or an ascending urinary tract infection. Please correlate clinically. 6. Probable hepatic steatosis. 7. Occluded right common femoral artery is of uncertain chronicity. Please correlate clinically. 8. Probable hepatic steatosis. 9. Pleural thickening and calcifications with associated mild fibrotic changes within the lung bases is unchanged since 2013, compatible with a benign process. 10. Severe degenerative changes of the lumbar spine. 11. Prominent aortic atherosclerosis with near aneurysmal dilatation of the abdominal aorta. 11. Small cystic focus along the medial pancreatic body is of doubtful significance. Other findings of chronic pancreatitis are present. This likely is sequela from previous pancreatitis. The need for contrast enhanced MRI of the pancreas may be determined clinically. Dictated by: William Valiente M.D. on 05/03/2019 at 17:06 Approved by: William Valiente M.D. on 05/03/2019 at 17:21
--- NOTE | 2019-05-03 16:23 | DI.US.S_ITS ---
PROCEDURE: US ABDOMEN LIMITED INDICATIONS: RIGHT UPPER QUADRANT PAIN TECHNIQUE: Real-time scanning was performed of the abdominal and retroperitoneal organs, with image documentation. COMPARISON: [facility], CT, CT ABDOMEN PELVIS W CON, 05/03/2019, 17:47. FINDINGS: Liver: The liver is normal in size and noted to be moderately heterogeneous without a definite liver lesion appreciated. Gallbladder: The gallbladder is normal in size. There borderline gallbladder wall thickening. Areas of ring down artifact may represent overlying bowel versus adenomyomatosis. A small amount of sludge is present within the gallbladder. There is no pericholecystic fluid or cholelithiasis. Biliary ducts: Intrahepatic bile ducts are non-dilated. Extrahepatic bile duct caliber measures 5 mm. Normal is 6-7 mm or less in diameter, or 10 mm or less post-cholecystectomy. Pancreas: Visualized portions of the pancreas are sonographically normal. Kidney: Right kidney is normal in size and demonstrates slight increased echogenicity of the renal cortex. There is no hydronephrosis. Cortical thinning is present. The right kidney measures 10.3 cm in length. No cystic or solid renal lesions are evident. No shadowing renal calculi. Miscellaneous: No free abdominal fluid. IMPRESSION: 1. Gallbladder sludge without cholelithiasis or convincing evidence of acute cholecystitis. 2. Questionable gallbladder adenomyomatosis. 3. Echogenic appearance of the right kidney with corresponding cortical thinning suggestive of chronic medical renal disease. There is no hydronephrosis. Dictated by: William Valiente M.D. on 05/03/2019 at 17:02 Approved by: William Valiente M.D. on 05/03/2019 at 17:05
--- NOTE | 2019-05-03 16:23 | DI.RAD.S_ITS ---
PROCEDURE: XR CHEST 1V INDICATIONS: SOB, wheezing TECHNIQUE: One view of the chest was acquired. COMPARISON: [facility], CR, XR CHEST 1V, 07/19/2018, 14:56. FINDINGS: Surgical changes and devices: None. Lungs and pleura: The aeration of the lungs is similar to the previous exam with patchy areas of increased density throughout the lungs bilaterally that is more prominent on the right lung compared to the left. Blunting of the right costophrenic angle is similar to the previous exam. No definite effusion or pneumothorax is appreciated. Mediastinum: Mediastinal contours appear normal. Heart size is normal. Bones and chest wall: No suspicious bony lesions. Overlying soft tissues appear unremarkable. IMPRESSION: Patchy airspace disease throughout the lungs (right more than left) have a similar appearance to the previous exam and probably represents chronic lung changes. Superimposed pneumonia is difficult to exclude. Dictated by: William Valiente M.D. on 05/03/2019 at 15:33 Approved by: William Valiente M.D. on 05/03/2019 at 15:34
[2019-05-03] MEDS: SODIUM CHLORIDE 0.9% 1,000 ML 1000 ML IV (16:33)
[2019-05-03] MEDS: ALBUTEROL/IPRATROPIUM 3 ML AMPUL INH (16:34)
--- NOTE | 2019-05-03 16:34 | PC.NURSE ---
oral contrast started
[2019-05-03 16:38] LABS: Add Manual Diff / Slide Review NO; Basophils Absolute Auto 0 /uL (0-100); Basophils Percent Auto 0.2 % (0-2); Eosinophils Absolute Auto 100 /uL (0-450); Eosinophils Percent Auto 1.5 % (2-4); Hematocrit 41.9 % (41-53); Lymphocytes Absolute Auto 1700 /uL (1100-4500); Lymphocytes Percent Auto 23.2 % (25-40); Mean Corpuscular HGB Conc 33.5 % (30-36); Mean Corpuscular Hemoglobin 31.1 PG (26-34); Mean Corpuscular Volume 92.7 fL (80-100); Monocytes Absolute Auto 600 /uL (0-900); Monocytes Percent Auto 8.3 % (3-14); Neutrophils Absolute Auto 4900 /uL (1500-7000); Neutrophils Percent Auto 66.8 % (50-75); Platelet Count 229 X10^3/uL (150-400); Red Blood Cell Count 4.52 X10^6/uL (4.5-5.9); Red Cell Distribution Width 15.4 % (11.6-14.8); White Blood Cell Count 7.3 X10^3/uL (4.5-11.0)
[2019-05-03 16:51] LABS: Prothrombin Time 11.4 SECONDS (10.1-12.7)
[2019-05-03 16:53] LABS: PTT Partial Thromboplastin Tim 36 SECONDS (26.4-36.2)
[2019-05-03 16:55] LABS: Albumin 4.2 g/dL (3.5-5.0); Albumin Globulin Ratio 0.9 (1.0-2.8); Alkaline Phosphatase 65 U/L (38-126); Aspartate Aminotransferase 23 IU/L (17-59); BUN Creatinine Ratio 28.2 (6-22); Bilirubin Total 0.7 mg/dL (0.2-1.3); Blood Urea Nitrogen 31 mg/dL (9-20); Calcium 9.9 mg/dL (8.4-10.2); Carbon Dioxide 29 mmol/L (22-32); Chloride 104 mmol/L (98-107); Creatine Kinase 37 U/L (55-170); Estimated Glomerular Filt Rate > 60.0 mL/min (>60); Globulin 4.7 g/dL (1.7-4.1); Glucose 88 mg/dL (80-110); HEMOLYSIS 32 (0-50); Potassium 4.5 mmol/L (3.4-5.1); Sodium 140 mmol/L (137-145); Total Protein 8.9 g/dL (6.3-8.2)
[2019-05-03 17:04] LABS: Alanine Aminotransferase < 6 IU/L (21-72)
[2019-05-03 17:07] LABS: Troponin I < 0.012 ng/mL (0.01-0.034)
[2019-05-03 17:18] LABS: Lipase 253 U/L (23-300)
[2019-05-03] MEDS: LABETALOL 20 MG/4 ML SYRINGE 5 MG IV (19:18)
--- NOTE | 2019-05-03 19:22 | PC.NURSE ---
Prior to administering labetaolol verified with provider that she still wanted it with pt's HR of 56, was told to give it and closely monitor.
[2019-05-03] MEDS: MAGNESIUM CITRATE 300 ML SOLUTION 150 ML PO (19:42)
== END 2019-05-03 19:54 | disposition home or self-care (01) ==
PROVIDERS: Emergency Medicine; Emergency Provider Nurse Practitioner; PCP Student in an Organized Health Care Education/Training Program
DX: R93.3 Abnormal findings on diagnostic imaging of other parts of digestive tract (principal); K82.8 Other specified diseases of gallbladder; I10 Essential (primary) hypertension; K59.02 Outlet dysfunction constipation; R06.02 Shortness of breath; R10.11 Right upper quadrant pain
CPT/HCPCS: 36415; 36591; 71045; 74177; 76705; 80053; 82550; 83690; 84484; 85025; 85610; 85730; 94640; 96361; 96374; 99283; 99285; Q9967

== ENCOUNTER 2019-10-29 15:16 | Day surgery (SDC) | payer OTHER, SELFPAY ==
[2018-07-19 18:58] VITALS: BMI 18.6
--- NOTE | 2019-10-29 | PATH_ITS ---
[facility] Accession Number: [id number] . 01 Material submitted: . colon - SPLENIC COLON POLYP . 02 Diagnosis: Splenic Flexure, Polyp: Tubular adenoma. MRV 10/31/2019 0946 Local . 02 Electronically signed: . Johnnie Gannon MD, PhD, Pathologist NPI- [id number] . 01 Gross description: . SPLENIC COLON POLYP: Received in formalin is 1 fragment(s) of ko, soft tissue measuring 0.4 x 0.4 x 0.3 cm submitted entirely in 1 cassette(s) /QBJ 10/30/2019 0554 Local . 02 Pathologist provided ICD-10: D12.3 . 02 CPT . 215286 Performed at: 01 [facility] [address] [place] [address], [place], [place] [id number] MD Lalo Crook MD Phone: [phone] Performed at: 02 [facility] [address] [place], [place] [id number] MD Hortencia De Leon MD Phone: [phone]
[2019-10-29 15:47] VITALS: BP 232/97; PULSE 72; RESP 15; TEMP 36.3; O2SAT 97; BMI 15.9
[2019-10-29] MEDS: SODIUM CHLORIDE 0.9% 1,000 ML 42 ML IV (15:57)
--- NOTE | 2019-10-29 16:15 | PM.OP.ENDO ---
Operative Date/Time/Diagnoses Date of procedure: 10/29/19 Pre-op diagnosis: See indication and findings Procedure & Clinicians Study performed: Colonoscopy Same procedure as scheduled: Yes Surgeon: Harshad Walker Procedure Notes Procedure in detail: After informed consent was obtained the patient was placed in left lateral decubitus position. The video colonoscope was introduced to the rectum slowly to cecum. Slow withdrawal mucosa was carefully examined. Preparation was good. The scope was removed. The patient tolerated procedure well. Blood loss none Complications none Sedation MAC Findings 1. Very tortuous colon to the cecum. There was not however any evidence of stenosis in the sigmoid colon. 2. A 15 mm sessile flat polyp near the splenic flexure this was cold snared and removed completely 3. Otherwise negative colonoscopy to cecum Mr./actually no further followup colonoscopy/colorectal cancer screening in the future. I have sent it in MiraLax for him to take 17 g daily and he should stay on this indefinitely.
--- NOTE | 2019-10-29 16:18 | PM.HP.1 ---
History of Present Illness History of Present Illness Date Patient Seen: 10/29/19 Chief complaint: [id number] Narrative: Constipation with abnormal CT showing possible sigmoid stenosis Patient History Family & Social History Social History: household members none Tobacco & Substance use: Tobacco type cigars Smoking Status Current every day smoker alcohol intake former alcohol intake frequency a few times a month Substance Use Type does not use,other Meds Home Medications and Allergies Home Medications Medication Instructions Recorded Confirmed Type Anxiety 07/19/18 History Blood Thinner 07/19/18 History albuterol sulfate 2 puff INHALATION Q4-6H PRN 07/19/18 07/31/18 History albuterol sulfate 2.5 mg INHALATION BID PRN 07/19/18 07/31/18 History budesonide-formoterol 2 puff INHALATION BID 07/19/18 07/31/18 History cholecalciferol (vitamin D3) 2,000 unit PO DAILY 07/19/18 07/31/18 History [Vitamin D3] tiotropium bromide 1 cap INHALATION DAILY 07/19/18 07/31/18 History atorvastatin [Lipitor] 40 mg PO BEDTIME #30 tab 07/20/18 07/31/18 Rx hydrochlorothiazide 25 mg PO DAILY #30 tab 07/20/18 07/31/18 Rx lisinopril 20 mg PO DAILY #30 tab 07/20/18 07/31/18 Rx nicotine 14 mg TOPICAL DAILY #14 ea 07/20/18 Rx hydrochlorothiazide 12.5 mg PO DAILY #30 tab 05/03/19 Rx Allergies Allergy/AdvReac Type Severity Reaction Status Date / Time No Known Drug Allergies Allergy Verified 05/03/19 15:47 Exam Vital Signs (past 8 hours): - 10/29/19 15:47 Temperature 97.4 F L Pulse Rate 72 Respiratory Rate 15 Blood Pressure 232/97 H Pulse Oximetry 97 Oxygen Delivery Method Room Air Narrative Exam Narrative: Oropharynx free of lesions Chest clear to auscultation percussion Cardiac exam reveals no S3 or murmur Assessment & Plan Assessment & Plan narrative: New onset constipation with CT scan showing possible stenosis of the sigmoid colon. Need for assessment rule out neoplasia. Risks, benefits, alternatives have been explained.
[2019-10-29 16:52] VITALS: BP 206/88; PULSE 59; RESP 15; TEMP 36.2; O2SAT 94
[2019-10-29 16:58] VITALS: BP 226/90; PULSE 63; RESP 12; O2SAT 92
[2019-10-29 17:05] VITALS: BP 226/96; PULSE 70; RESP 16; O2SAT 93
--- NOTE | 2019-10-29 17:39 | SUR.PHASEII ---
Discharged patient home with all belongings intact. Escorted patient to ER entrance via wheelchair and sent patient home with son. Patient tolerated 3 juices at discharge and voided prior to leaving PACU.
== END 2019-10-29 17:40 | disposition home or self-care (01) ==
PROVIDERS: PCP Student in an Organized Health Care Education/Training Program; Referring Provider Student in an Organized Health Care Education/Training Program; Visit Provider Internal Medicine Gastroenterology
PROC: 0DJD8ZZ Inspection of Lower Intestinal Tract, Via Natural or Artificial Opening Endoscopic (ICD-10-PCS; CPT 45378; principal; 2019-10-29 16:30)
DX: D12.3 Benign neoplasm of transverse colon (principal)
CPT/HCPCS: 45385; J2250; J2704